=== PATIENT | male | born 1945 | race Caucasian/White ===

== ENCOUNTER 2018-06-03 10:34 | Observation (INO) | payer MEDICARE, OTHER ==
[~2018-06-03] VITALS: Ht 167.6 cm; Wt 87.5 kg
[~2018-06-03 10:34] MED LIST: AMLODIPINE BESYL5 MG PO; ATENOLOL50 MG PO; ATORVASTATIN CA20 MG PO; CLOPIDOGREL75 MG PO; GLIMEPIRIDE2 MG PO; LOSARTAN POTASS50 MG PO; OXYBUTYNIN CHLO15 MG PO; TERAZOSIN HCL5 MG PO
[2018-06-03] MEDS ORDERED: METOPROLOL SUCC50 MG PO (13:47)
[2018-06-03 13:56] LABS: BASOPHILS % 0.3 % (0.0-1.0); EOSINOPHILS # (AUTO) 0.1 (0.0-0.4); EOSINOPHILS % 0.5 % (0.0-6.0); HEMATOCRIT 41.8 % (38.2-49.6); HEMOGLOBIN 13.7 g/dL (14.0-18.0); LYMPHOCYTES # (AUTO) 3.1 (1.0-3.2); LYMPHOCYTES % 32.4 % (18.0-39.1); MEAN CORPUSCULAR HEMOGLOBIN 29.5 pg (28-32); MEAN CORPUSCULAR HGB CONC 32.8 g/dL (31-35); MEAN CORPUSCULAR VOLUME 89.9 fL (81-99); MONOCYTES # (AUTO) 0.9 (0.2-0.8); MONOCYTES % 9.2 % (4.4-11.3); NEUTROPHILS # (AUTO) 5.4 (2.1-6.9); NEUTROPHILS % 57.2 % (38.7-80.0); PLATELET COUNT 150 x10e3/uL (140-360); RED BLOOD COUNT 4.65 x10e6/uL (4.3-5.7); RED CELL DISTRIBUTION WIDTH 13.3 % (11.7-14.4)
[2018-06-03 14:06] LABS: INR 1.08; PROTHROMBIN TIME 13.2 seconds (11.9-14.5)
[2018-06-03 14:07] LABS: PARTIAL THROMBOPLASTIN TIME 28.1 seconds (23.8-35.5)
[2018-06-03 14:15] LABS: ALANINE AMINOTRANSFERASE 14 IU/L (0-55); ALBUMIN 3.7 g/dL (3.5-5.0); ALKALINE PHOSPHATASE 80 IU/L (40-150); ANION GAP 13.6 mmol/L (8-16); BLOOD UREA NITROGEN 13 mg/dL (7-26); BUN/CREATININE RATIO 13 (6-25); CALCIUM 10.2 mg/dL (8.4-10.2); CARBON DIOXIDE 24 mmol/L (22-29); CHLORIDE 104 mmol/L (98-107); CREATININE, SERUM 0.97 mg/dL (0.72-1.25); EST GLOMERULAR FILTRATION RATE > 60 ML/MIN (60-); GLUCOSE 111 mg/dL (74-118); POTASSIUM 4.6 mmol/L (3.5-5.1); SODIUM 137 mmol/L (136-145)
[2018-06-03] MEDS ORDERED: ENOXAPARIN INJ 80 MG/0.8 ML SYR SC STA (14:23)
[2018-06-03] MEDS ORDERED: ENOXAPARIN SODIUM INJ 100 MG/ML SYR SC ONE ×2 (14:45)
[2018-06-03] MEDS ORDERED: HEPARIN SOD (PORCINE) 5,000 UNIT/ML VIAL IV ONE (15:15)
[2018-06-03] MEDS: HEPARIN 25,000U/0.45% NS 250ML 1,300 UNIT in SODIUM CHLORIDE 0.9% 250ML 0 ML IV SCH ×2 (16:19→22:27)
[2018-06-03 16:24] VITALS: BP 137/69
[2018-06-03 16:25] VITALS: BP 137/69
[2018-06-03 16:26] VITALS: BP 137/69
[2018-06-03] MEDS: HYDROCODONE/APAP 5MG-325MG TAB PO PRN (19:04)
[2018-06-03 20:00] VITALS: BP 131/73
[2018-06-04] VITALS (7 sets, daily range): BP systolic 111–148; BP diastolic 70–80
[2018-06-04] MEDS: HYDROCODONE/APAP 5MG-325MG TAB PO PRN ×2 (05:11→17:53)
[2018-06-04] MEDS: HEPARIN 25,000U/0.45% NS 250ML 1,300 UNIT in SODIUM CHLORIDE 0.9% 250ML 0 ML IV SCH ×2 (05:39→11:38)
[2018-06-04] MEDS: ASPIRIN 81 MG ENTERIC COATED PO SCH (07:36)
[2018-06-04] MEDS ORDERED: DEXTROSE 50% SYRINGE 50 ML IV PRN (09:15)
--- NOTE | 2018-06-04 10:09 | History and Physical ---
PCP: Dr. Westley Zimmer ROUGH AND TRUEING MACHINE OPERATOR: Dr. Sudheer Burk CHIEF COMPLAINT: Left thigh pain. HISTORY: Patient is a 72-year-old male with coronary artery disease, previous bypass surgery back in the ; diabetes type 2, on oral medication; and hypertension; came in with a complaint of 1-week duration of left thigh pain. The patient had arterial Doppler done showing that he has superficial femoral artery blockage. The patient is pending for further workup. PAST MEDICAL HISTORY: Coronary artery disease with coronary artery bypass surgery back in the . Hypertension, diabetes type 2, dyslipidemia, peripheral vascular disease, enlarged prostate. PAST SURGICAL HISTORY: Coronary artery bypass graft surgery, 3-vessel. SOCIAL HISTORY: Patient is an ex-smoker, quit many years ago. No alcohol, no recreational drug use. ALLERGIES: TO NO KNOWN ALLERGY. HOME MEDICATIONS: Norvasc, Lipitor, Plavix, Amaryl, losartan, metoprolol succinate, oxybutynin, and terazosin. REVIEW OF SYSTEMS: Left thigh pain improved with heparin drip. PHYSICAL EXAMINATION: VITAL SIGNS: Temperature is 98, blood pressure 111/72, pulse rate is 65, respirations 18. GENERAL: The patient is not in acute distress. He is awake. HEENT: Normocephalic, atraumatic. Sclerae anicteric. NECK: Supple grossly. PULMONARY: Diminished breath sounds. CARDIOVASCULAR: Regular rate and rhythm. ABDOMEN: Soft, nontender, non distention. EXTREMITIES: Left upper thigh area some tenderness, but no swelling, no sign of infection, no thrombophlebitis. NEUROLOGIC: No focal deficit. LABORATORY: WBC is 9.4, hemoglobin 13.7, hematocrit 41.8, and platelets 150,000. Chemistry: Sodium 137, potassium 4.6, chloride 104, bicarb 24, BUN 13, creatinine 0.9, glucose is 111. IMPRESSION: 1. Left upper leg arterial occlusion, superficial femoral per record from emergency room. 2. Multiple chronic baseline problems. PLAN: Angiogram and stent placement are planned. Continue with home medication. Insulin sliding scale coverage. The patient is stable for observation at this time. Job#: [id number]
[2018-06-04] MEDS: INSULIN LISPRO 100 UNIT/1 ML 3ML VIAL SQ SCH ×3 (11:29→21:39)
--- NOTE | 2018-06-04 11:35 | Consultation ---
DATE OF CONSULTATION: June 04, 2018 CARDIOLOGY CONSULTATION REASON FOR CONSULTATION: Left lower extremity rest pain. CHIEF COMPLAINT: "My left thigh was hurting me really badly." HPI: The patient is a 72-year-old male with history of CAD, status post CABG in 1994, who presents with 2 days of pain in his left thigh that has been progressively getting worse and progressed to having pain at rest, so he finally came to the hospital. Patient was suspected to have occlusion of his left common femoral artery, initially seen by Dr. Jones and referred for possible stent placement by interventional radiology. However, we were called once it was discovered that we had seen this patient as an outpatient previously. Currently, the patient says his pain is better after being on heparin drip. Denies any chest pain, shortness of breath or heart failure symptoms. REVIEW OF SYSTEMS: A 10-point review of systems was performed and is as per the HPI, otherwise negative. PAST MEDICAL HISTORY 1. Coronary artery disease. 2. Hypertension. 3. Hyperlipidemia. PAST SURGICAL HISTORY: Coronary bypass surgery in 1994. SOCIAL HISTORY: Patient does not smoke, drink or abuse drugs. FAMILY HISTORY: No family history of early CAD or sudden cardiac . OBJECTIVE VITAL SIGNS: Temperature 98.3, pulse 65, respiratory rate 18, blood pressure 131/70, satting 97% on room air. GENERAL: White male, well developed, well nourished, obese. CARDIOVASCULAR: Regular rate and rhythm. PMI nondisplaced. Normal S1, S2. No murmurs, rubs or gallops. Palpable carotid pulses. Palpable radial pulses. Palpable right femoral pulse. Left femoral pulse is very weak. Left lower extremity pulses are not palpable otherwise; however, the extremity is warm without any mottling or signs of acute ischemia. RESPIRATORY: No respiratory distress. Lungs are clear to auscultation bilaterally. ABDOMEN: Soft, nontender, nondistended. No masses. NEURO AND PSYCH: Alert and oriented to person, place and time. Normal affect. MEDICATIONS: Inpatient and outpatient medications were reviewed. LABORATORY: All laboratory data reviewed and notable for hemoglobin of 13.7, creatinine of 0.97, INR 1.09. PTT is therapeutic. IMAGING DATA: Reviewed. ASSESSMENT AND PLAN 1. Left lower extremity rest pain. 2. Coronary artery disease. 3. Hypertension. 4. Hyperlipidemia. Continue current outpatient cardiovascular medicines including Plavix. Continue heparin drip for left lower extremity rest pain. Dr. Burk to perform left lower extremity angiogram with possible intervention later today. Thank you for this consult. We will continue to follow. Job#: [id number]
[2018-06-04] MEDS: METOPROLOL SUCCINATE 50 MG TAB XL PO SCH (15:42)
[2018-06-04] MEDS ORDERED: NON-FORMULARY MEDICATION (Losartan Potassium 50 MG) PO SCH (21:00)
[2018-06-04] MEDS: ATORVASTATIN 20 MG TAB PO SCH (21:35)
[2018-06-04] MEDS: LOSARTAN POTASSIUM 25 MG TAB PO SCH (21:35)
[2018-06-05] VITALS (17 sets, daily range): BP systolic 105–167; BP diastolic 60–90
[2018-06-05] MEDS: HYDROCODONE/APAP 5MG-325MG TAB PO PRN (04:28)
[2018-06-05] MEDS: HEPARIN 25,000U/0.45% NS 250ML 1,300 UNIT in SODIUM CHLORIDE 0.9% 250ML 0 ML IV SCH (06:28)
[2018-06-05] MEDS: INSULIN LISPRO 100 UNIT/1 ML 3ML VIAL SQ SCH ×4 (07:30→21:00)
[2018-06-05] MEDS: ASPIRIN 81 MG ENTERIC COATED PO SCH (07:33)
[2018-06-05] MEDS: METOPROLOL SUCCINATE 50 MG TAB XL PO SCH ×2 (07:33→17:00)
[2018-06-05] MEDS: OXYBUTYNIN CHLORIDE XL 5 MG TAB PO SCH (07:33)
[2018-06-05] MEDS: TERAZOSIN HCL 5 MG CAP PO SCH (07:33)
[2018-06-05] MEDS: AMLODIPINE BESYLATE 5 MG TAB PO SCH (07:33)
[2018-06-05] MEDS ORDERED: CLOPIDOGREL BISULFATE 75 MG TAB PO SCH (09:00)
--- NOTE | 2018-06-05 14:05 | Progress Note ---
DATE: June 05, 2018 CARDIOLOGY PROGRESS NOTE SUBJECTIVE: Patient denies chest pain or shortness of breath. He is n.p.o. for peripheral angiogram later today. His main complaint is of back pain. OBJECTIVE VITAL SIGNS: Temperature 97.8 degrees, pulse 60, respiratory rate 21, blood pressure 140/70, oxygen saturation 98% on room air. GENERAL: Awake, alert, in no acute distress. LUNGS: Clear to auscultation bilaterally. No wheezes or crackles. CARDIOVASCULAR: Normal rate, regular rhythm. No murmur. Normal S1 and S2. ABDOMEN: Soft. Nontender. EXTREMITIES: No edema. Left lower extremity is warm without palpable distal pulses. CARDIAC MEDICATIONS 1. Heparin drip. 2. Losartan 50 mg p.o. nightly. 3. Atorvastatin 20 mg p.o. nightly. 4. Metoprolol succinate 50 mg p.o. b.i.d. 5. Plavix 75 mg p.o. daily. 6. Amlodipine 5 mg p.o. daily. 7. Aspirin 81 mg p.o. daily. LABS: None today. TELEMETRY: Normal sinus rhythm. IMPRESSION 1. Peripheral arterial disease with critical limb ischemia. 2. Coronary artery disease. 3. Hypertension. 4. Hyperlipidemia. RECOMMENDATIONS: Plan for peripheral angiogram by Dr. Burk later this afternoon. Continue current cardiac medications otherwise. Thank you for this consult. We will continue to follow. Job#: [id number]
[2018-06-05] MEDS ORDERED: HEPARIN SOD (PORCINE) 1000 UNIT/ML 30ML ONE (14:11)
[2018-06-05] MEDS ORDERED: VERAPAMIL HCL 2.5 MG/ML 2 ML VIAL ONE (14:11)
[2018-06-05] MEDS ORDERED: IOPAMIDOL 300MG/ML 100 ML INFUS..BTL IV ONE (14:12)
[2018-06-05] MEDS ORDERED: FENTANYL CITRATE/PF 100MCG/2 ML INJ ONE ×2 (14:12→15:43)
[2018-06-05] MEDS ORDERED: MIDAZOLAM HCL 2 MG/2 ML VIAL ONE ×3 (14:12→15:43)
[2018-06-05] MEDS ORDERED: HEPARIN SOD/SOD CHLORIDE 2,000 ML ONE (14:12)
[2018-06-05] MEDS ORDERED: LIDOCAINE HCL 2% LOCAL 20 ML VIAL ONE (14:12)
[2018-06-05] MEDS ORDERED: NITROGLYCERIN/D5W 200 MCG/ML 250 ML ONE (14:12)
[2018-06-05] MEDS ORDERED: SODIUM CHLORIDE 0.9% 1000ML 2,000 ML ONE (14:25)
[2018-06-05] MEDS ORDERED: ALTEPLASE RECOMBINANT 2 MG/2 ML VIAL ONE (14:47)
[2018-06-05] MEDS ORDERED: SODIUM CHLORIDE 0.9% 50ML 50 ML ONE (14:47)
--- NOTE | 2018-06-05 17:08 | Operative Report ---
DATE OF PROCEDURE: June 05, 2018 INDICATIONS: and claudication of left lower extremity. PROCEDURES PERFORMED 1. Catheter placement and abdominal aortogram. 2. Bilateral lower extremity angiogram. 3. Selective placement of the catheter from the right femoral artery to the left superficial femoral artery. 4. Additional 3rd-order catheter placement from the right femoral artery to the left anterior tibial artery. 5. Primary thrombectomy of the left femoral artery. 6. Stent placement with drug-coated balloon angioplasty of the left femoral artery. COMPLICATIONS: None. RECOMMENDATIONS: Triple therapy for anticoagulation for the next 3 months. Access was obtained in the right femoral artery. Abdominal aortogram demonstrated no disease in the abdominal aorta and iliacs. The left femoral artery was completely occluded with thrombus. The patient received heparin with an ACT of 254. The lesion was crossed using a Glidewire. Power Pulse primary thrombectomy of the left superficial femoral artery was performed using an Angio-Jet device with 4 mg of tPA. The tPA was allowed to dwell for 35 minutes following which primary thrombectomy was performed. There was residual thrombus for which 2 overlapping 6-mm stents were placed post dilated with a 5-mm balloon. Excellent end result. Three-vessel runoff. No complications. The right groin sheath was Job#: [id number]
[2018-06-05] MEDS ORDERED: MORPHINE SULFATE 2 MG/ML SYR ONE (17:20)
[2018-06-05] MEDS ORDERED: ATROPINE SULFATE 0.1 MG/ML 10ML SYR ONE (19:43)
[2018-06-05] MEDS: LOSARTAN POTASSIUM 25 MG TAB PO SCH (21:35)
[2018-06-05] MEDS: ATORVASTATIN 20 MG TAB PO SCH (21:36)
[2018-06-05] MEDS ORDERED: MORPHINE SULFATE INJ 4 MG/ML INJ IV PRN (22:00)
[2018-06-05] MEDS: SODIUM CHLORIDE 0.9% 1000ML 1,000 ML IV SCH (22:10)
[2018-06-06] VITALS: BP 151/80
[2018-06-06 04:00] VITALS: BP 168/88
[2018-06-06 04:57] LABS: BASOPHILS % 0.3 % (0.0-1.0); EOSINOPHILS # (AUTO) 0.1 (0.0-0.4); EOSINOPHILS % 0.5 % (0.0-6.0); HEMATOCRIT 41.9 % (38.2-49.6); HEMOGLOBIN 13.8 g/dL (14.0-18.0); LYMPHOCYTES # (AUTO) 2.5 (1.0-3.2); LYMPHOCYTES % 27.5 % (18.0-39.1); MEAN CORPUSCULAR HEMOGLOBIN 29.5 pg (28-32); MEAN CORPUSCULAR HGB CONC 32.9 g/dL (31-35); MEAN CORPUSCULAR VOLUME 89.5 fL (81-99); MONOCYTES # (AUTO) 0.8 (0.2-0.8); MONOCYTES % 8.9 % (4.4-11.3); NEUTROPHILS # (AUTO) 5.7 (2.1-6.9); NEUTROPHILS % 62.4 % (38.7-80.0); PLATELET COUNT 186 x10e3/uL (140-360); RED BLOOD COUNT 4.68 x10e6/uL (4.3-5.7); RED CELL DISTRIBUTION WIDTH 13.5 % (11.7-14.4)
[2018-06-06 05:26] LABS: ANION GAP 13.1 mmol/L (8-16); BLOOD UREA NITROGEN 14 mg/dL (7-26); BUN/CREATININE RATIO 13 (6-25); CALCIUM 9.8 mg/dL (8.4-10.2); CARBON DIOXIDE 24 mmol/L (22-29); CHLORIDE 103 mmol/L (98-107); CREATININE, SERUM 1.09 mg/dL (0.72-1.25); EST GLOMERULAR FILTRATION RATE > 60 ML/MIN (60-); GLUCOSE 144 mg/dL (74-118); POTASSIUM 4.1 mmol/L (3.5-5.1); SODIUM 136 mmol/L (136-145)
[2018-06-06] MEDS: INSULIN LISPRO 100 UNIT/1 ML 3ML VIAL SQ SCH ×3 (07:30→16:30)
[2018-06-06 08:18] VITALS: BP 155/72
[2018-06-06] MEDS: SODIUM CHLORIDE 0.9% 1000ML 1,000 ML IV SCH (08:34)
[2018-06-06] MEDS: ASPIRIN 81 MG ENTERIC COATED PO SCH (08:34)
[2018-06-06] MEDS: OXYBUTYNIN CHLORIDE XL 5 MG TAB PO SCH (08:35)
[2018-06-06] MEDS: AMLODIPINE BESYLATE 5 MG TAB PO SCH (08:37)
[2018-06-06] MEDS: TERAZOSIN HCL 5 MG CAP PO SCH (08:37)
[2018-06-06] MEDS: METOPROLOL SUCCINATE 50 MG TAB XL PO SCH ×2 (08:38→17:00)
[2018-06-06] MEDS ORDERED: CLOPIDOGREL BISULFATE 75 MG TAB PO SCH (09:00)
[2018-06-06] MEDS ORDERED: RIVAROXABAN 15 MG TABLET PO SCH (09:00)
[2018-06-06] MEDS ORDERED: ASPIRIN 325 MG TAB PO ONE (09:00)
--- NOTE | 2018-06-06 09:54 | Discharge Summary ---
PRIMARY CARE PHYSICIAN: Dr. Westley Zimmer CONSULTANTS: Dr. Sudheer Burk FINAL DIAGNOSES 1. Status post right femoral artery occlusion with status post angiogram procedure on June 05, 2018, done by Dr. Sudheer Burk. Patient had selective placement of a catheter from the right femoral artery to the left superficial femoral artery. 2. Primary thrombectomy of the left femoral artery and stent placement with drug-eluting balloon angioplasty of the left femoral artery. 3. Anticoagulant therapy. SUMMARY: Patient is a 72-year-old male with acute occlusion of the right femoral artery. The patient is now status post stent placement with drug-coated balloon angioplasty of the left femoral artery. Patient is stable. He was already on Plavix and aspirin. Now, he is on Xarelto 15 mg once a day. The patient is stable. He will go home today. Follow up with Dr. Sudheer Burk and Dr. Westley Zimmer for postop care. Patient is stable and discharged home today. Follow up as instructed. Prescription for Xarelto was given. Job#: [id number] MA
[2018-06-06 11:00] VITALS: BP 155/72
[2018-06-06 12:12] VITALS: BP 136/62
[2018-06-06 16:19] VITALS: BP 140/65
[2018-06-06] MEDS ORDERED: XARELTO10 MG PO (17:19)
--- NOTE | 2018-06-06 20:14 | Progress Note ---
DATE: June 06, 2018 CARDIOLOGY PROGRESS NOTE SUBJECTIVE: Patient denies chest pain or shortness of breath. OBJECTIVE VITAL SIGNS: Temperature 97.1 degrees, pulse 73, respiratory rate 16, blood pressure 140/65, oxygen saturation 97% on room air. GENERAL: Awake, alert, in no acute distress. LUNGS: Clear to auscultation bilaterally. No wheezes or crackles. CARDIOVASCULAR: Normal rate, regular rhythm. No murmur. Normal S1, S2. ABDOMEN: Soft, nontender. EXTREMITIES: No edema. Right groin with bruising, but no hematoma or bruit is present. CARDIAC MEDICATIONS 1. Metoprolol succinate 50 mg p.o. b.i.d. 2. 15 mg p.o. daily. 3. Plavix 75 mg p.o. daily. 4. Amlodipine 5 mg p.o. daily. 5. Aspirin 81 mg p.o. daily. 6. Atorvastatin 20 mg p.o. nightly. 7. Losartan 50 mg p.o. nightly. LABS: WBC 9.18, hemoglobin 13.8, hematocrit 41.9, platelets 186,000. Sodium 136, potassium 4.1, chloride 103, CO2 24, BUN 14, creatinine 1.09. TELEMETRY: Normal sinus rhythm. IMPRESSIONS 1. Peripheral arterial disease with critical limb ischemia of the left lower extremity, status post primary thrombectomy of the left femoral artery, as well as stent placement with drug-coated balloon angioplasty in the left femoral artery. 2. Coronary artery disease. 3. Hypertension. 4. Hyperlipidemia. RECOMMENDATIONS: Patient will need to be on triple therapy with aspirin, Plavix, and Xarelto 15 mg for 3 months. Monitor for signs and symptoms of bleeding. Continue current cardiac medications. Otherwise, please have the patient follow up with us in the office in 2 weeks. Thank you for this consult. We will continue to follow. Job#: [id number] CQ
== END 2018-06-06 17:57 | disposition home or self-care (01) ==
LOC: ER 10:34 → ERHOLD 14:52 → IMCU 15:28
PROVIDERS: ADMIT Internal Medicine; ATTEND Internal Medicine
DX: I70.212 Atherosclerosis of native arteries of extremities with intermittent claudication, left leg (principal); I74.3 Embolism and thrombosis of arteries of the lower extremities; I25.810 Atherosclerosis of coronary artery bypass graft(s) without angina pectoris; I77.1 Stricture of artery; E78.5 Hyperlipidemia, unspecified; I10 Essential (primary) hypertension; E11.9 Type 2 diabetes mellitus without complications; N40.0 Benign prostatic hyperplasia without lower urinary tract symptoms; Z79.84 Long term (current) use of oral hypoglycemic drugs; Z79.02 Long term (current) use of antithrombotics/antiplatelets; Z95.1 Presence of aortocoronary bypass graft; Z87.891 Personal history of nicotine dependence
CPT/HCPCS: 36415 ×3; 37184; 37226; 75625; 75716; 80048; 80053; 82948 ×4; 85025 ×2; 85610; 85730 ×4; 93926; 93971; 99284; C1725; C1769 ×2; C1876 ×2; C1887; C2623; G0378 ×4; J1644 ×5; J1650; J2001; J2250; J2270 ×2; J2997; J7030 ×2; J7050 ×3; Q9967

== ENCOUNTER → 2018-08-15 | Day surgery (SDC) | payer OTHER ==
[2018-08-14 11:58] LABS: BASOPHILS # (AUTO) 0.1 (0.0-0.1); BASOPHILS % 0.6 % (0.0-1.0); EOSINOPHILS # (AUTO) 0.1 (0.0-0.4); EOSINOPHILS % 1.6 % (0.0-6.0); HEMATOCRIT 43.5 % (38.2-49.6); LYMPHOCYTES # (AUTO) 2.7 (1.0-3.2); LYMPHOCYTES % 31.3 % (18.0-39.1); MEAN CORPUSCULAR HEMOGLOBIN 29.2 pg (28-32); MEAN CORPUSCULAR HGB CONC 32.2 g/dL (31-35); MEAN CORPUSCULAR VOLUME 90.6 fL (81-99); MONOCYTES # (AUTO) 0.8 (0.2-0.8); MONOCYTES % 9.3 % (4.4-11.3); NEUTROPHILS # (AUTO) 4.8 (2.1-6.9); PLATELET COUNT 164 x10e3/uL (140-360); RED CELL DISTRIBUTION WIDTH 13.1 % (11.7-14.4)
[2018-08-14 12:09] LABS: INR 0.91; PROTHROMBIN TIME 13.1 seconds (11.9-14.5)
[2018-08-14 12:18] LABS: ALANINE AMINOTRANSFERASE 17 IU/L (0-55); ALBUMIN 3.9 g/dL (3.5-5.0); ALBUMIN/GLOBULIN RATIO 1.1 (0.8-2.0); ALKALINE PHOSPHATASE 87 IU/L (40-150); ANION GAP 12.6 mmol/L (8-16); BLOOD UREA NITROGEN 15 mg/dL (7-26); BUN/CREATININE RATIO 13 (6-25); CALCIUM 10.5 mg/dL (8.4-10.2); CARBON DIOXIDE 26 mmol/L (22-29); CHLORIDE 105 mmol/L (98-107); CREATININE, SERUM 1.17 mg/dL (0.72-1.25); EST GLOMERULAR FILTRATION RATE > 60 ML/MIN (60-); GLUCOSE 168 mg/dL (74-118); POTASSIUM 4.6 mmol/L (3.5-5.1); SODIUM 139 mmol/L (136-145)
[~2018-08-15] VITALS: Ht 167.6 cm; Wt 88.5 kg
[~2018-08-15] MED LIST changes: +ALPRAZOLAM 0.5 MG TAB ONE; +ASPIR 8181 MG PO; +DIPHENHYDRAMINE HCL 25 MG CAP ONE; +FENTANYL CITRATE/PF 100MCG/2 ML INJ ONE; +HEPARIN SOD/SOD CHLORIDE 2,000 ML ONE; +IOPAMIDOL 370 MG/ML 200 ML INFUS..BTL INJ ONE; +LIDOCAINE HCL 2% LOCAL 20 ML VIAL ONE; +METOPROLOL SUCC50 MG PO; +MIDAZOLAM HCL 2 MG/2 ML VIAL ONE; +SODIUM CHLORIDE 0.9% 1000ML 1,000 ML ONE; +XARELTO10 MG PO
[2018-08-15 18:00] VITALS: BP 141/73
--- NOTE | 2018-08-15 18:49 | Operative Report ---
DATE OF PROCEDURE: August 15, 2018 INDICATIONS: Coronary artery disease. Abnormal stress test with angina. PROCEDURES PERFORMED: 1. Left heart catheterization, selective coronary angiography, left ventriculography. 2. Selective cannulation of 1 arterial and 2 venous bypass conduits. 3. Deployment of right groin Mynx closure device. BLOOD LOSS: 10 mL. RECOMMENDATIONS: Medical therapy including external counter pulsations. Access obtained in the right great femoral artery. A 6-Burund[place] sheath was placed. Diagnostic coronary angiogram revealed patent left main, left anterior descending and proximal 80% stenosis. Distal vessel was still visualized and was patent, had 70% stenosis. Circumflex was occluded. Right coronary artery is occluded. Saphenous vein bypass graft to right coronary artery was occluded. However, faint collaterals from the left coronary system filled the distal right posterior descending artery. Left anterior mammary artery bypass graft to left anterior descending artery was widely patent. Saphenous vein bypass graft to obtuse marginal artery was widely patent. LV ejection fraction 50% with inferior akinesis. LV end-diastolic pressure of 10. No gradient across the aortic valve on pullback. The sheath was removed. Right groin Mynx closure device was applied. Patient was discharged home same day. Job#: [id number]
[2018-08-15 19:30] VITALS: BP 161/77
== END | disposition home or self-care (01) ==
LOC: CATH LAB 12:48
PROVIDERS: ATTEND Internal Medicine Interventional Cardiology
DX: I25.799 Atherosclerosis of other coronary artery bypass graft(s) with unspecified angina pectoris (principal); I82.90 Acute embolism and thrombosis of unspecified vein; R94.39 Abnormal result of other cardiovascular function study; I25.2 Old myocardial infarction; I10 Essential (primary) hypertension; I73.9 Peripheral vascular disease, unspecified; E11.9 Type 2 diabetes mellitus without complications; Z01.812 Encounter for preprocedural laboratory examination; Z79.02 Long term (current) use of antithrombotics/antiplatelets; Z79.84 Long term (current) use of oral hypoglycemic drugs; Z79.82 Long term (current) use of aspirin; Z68.33 Body mass index [BMI] 33.0-33.9, adult; Z95.1 Presence of aortocoronary bypass graft; Z87.891 Personal history of nicotine dependence
CPT/HCPCS: 36415 ×2; 80053; 82948; 85025; 85610; 93458; C1769; J2001; J2250; J7030; Q9967; 93459

== ENCOUNTER 2020-08-12 18:56 | Emergency (ER) | payer OTHER ==
[~2020-08-12] VITALS: Ht 167.6 cm; Wt 88.5 kg
[~2020-08-12 18:56] MED LIST changes: -ALPRAZOLAM 0.5 MG TAB ONE; -DIPHENHYDRAMINE HCL 25 MG CAP ONE; -FENTANYL CITRATE/PF 100MCG/2 ML INJ ONE; -HEPARIN SOD/SOD CHLORIDE 2,000 ML ONE; -IOPAMIDOL 370 MG/ML 200 ML INFUS..BTL INJ ONE; -LIDOCAINE HCL 2% LOCAL 20 ML VIAL ONE; -MIDAZOLAM HCL 2 MG/2 ML VIAL ONE; -SODIUM CHLORIDE 0.9% 1000ML 1,000 ML ONE
[2020-08-12] MEDS ORDERED: AZITHROMYCIN 500MG/NS 250 ML 250 ML IV ONE (19:15)
[2020-08-12] MEDS ORDERED: CEFTRIAXONE SOD 1 GM/NS 50 ML 50 ML IV ONE (19:15)
[2020-08-12] MEDS ORDERED: ACETAMINOPHEN 325 MG TAB PO PRN (19:15)
[2020-08-12] MEDS ORDERED: DEXAMETHASONE SOD PHOS 10 MG/1 ML VIAL IV ONE (19:15)
--- NOTE | 2020-08-12 19:43 | Emergency Department Note ---
History of Present Illnes History of Present Illness Chief Complaint: Respiratory History of Present Illness This is a 74 year old male PRESENTS TO ED WITH INTERMITTENT FEVER, SOB, COUGH X1 WEEK; 20 GAUGE IV CATH PLACED TO PTS RIGHT AC, BLOOD OBTAINED FOR LAB ANALYSIS, CULTURES, LACTIC, COVID SWAB OBTAINED; O2 SAT RA 82%, O2 APPLIED VIA NC AT 6 LPM WITH RESULTING SPO2 93%; . Historian: Patient Arrival Mode: Car Ship Captain Required: No Onset (how long ago): week(s) (1) Location: CHEST Quality: COUGH, SOB, FEVEER Radiation: Reports non-radiation Severity: moderate Onset quality: gradual Duration (how long): week(s) (1) Timing of current episode: constant Progression: worsening Chronicity: new Context: Reports recent illness ( ABOVE) Relieving factors: none Exacerbating factors: movement Associated symptoms: Reports cough, Reports shortness of breath Treatments prior to arrival: none Past Medical/Family History Physician Review I have reviewed the patient's past medical and family history. Any updates have been documented here. Past Medical History Recent Fever: Yes Clinical Suspicion of Infectio: Yes New/Unexplained Change in Ment: No Past Medical History: Diabetes, CAD, Cancer, Chronic Kidney Disease Other Medical History: SKIN CANCER Past Surgical History: CABG Other Surgery: SKIN INFECTION REMOVED LEG SURGERY WHEN CABG DONE Social History Smoking Cessation: Never Smoker Alcohol Use: None Any Illegal Drug Use: No Family History Family history of heart diseas: No Other Last Tetanus: UNKNOWN Review of Systems Review of Systems Constitutional: Reports as per HPI EENTM: Reports no symptoms Cardiovascular: Reports no symptoms Respiratory: Reports as per HPI Gastrointestinal: Reports no symptoms Genitourinary: Reports no symptoms Musculoskeletal: Reports no symptoms Integumentary: Reports no symptoms Neurological: Reports no symptoms Psychological: Reports no symptoms Endocrine: Reports no symptoms Hematological/Lymphatic: Reports no symptoms Physical Exam Related Data Allergies: Coded Allergies: No Known Allergies (Unverified , 06/03/18) Triage Vital Signs Vital Signs Date Time Temp Pulse Resp B/P (MAP) Pulse Ox O2 Delivery O2 Flow Rate FiO2 08/12/20 19:07 99.1 97 25 157/64 82 Room Air 08/12/20 19:34 6.0 Vital signs reviewed: Yes Physical Exam CONSTITUTIONAL Constitutional: Present well-developed, Present well-nourished, Present dist ressed (MILD) HENT HENT: Present normocephalic, Present atraumatic, Present oropharynx clear /moist, Present nose normal HENT L/R: Present left ext ear normal, Present right ext ear normal EYES Eyes: Reports PERRL, Reports conjunctivae normal NECK Neck: Present ROM normal PULMONARY Pulmonary: Present effort normal, Present respiratory distress (MILD), Present other (DECREASED BREATH SOUNDS BASES BILATERAL) CARDIOVASCULAR Cardiovascular: Present regular rhythm, Present heart sounds normal, Present capillary refill normal, Present tachycardia GASTROINTESTINAL Abdominal: Present soft, Present nontender, Present bowel sounds normal GENITOURINARY Genitourinary: Present exam deferred SKIN Skin: Present warm, Present dry MUSCULOSKELETAL Musculoskeletal: Present ROM normal NEUROLOGICAL Neurological: Present alert, Present oriented x 3, Present no gross motor or sensory deficits PSYCHOLOGICAL Psychological: Present mood/affect normal, Present judgement normal Procedures 12 Lead ECG Interpretation ECG Interpretation : ECG: ECG 1 Ship Captain: Interpreted by ED physician Date: Aug 12, 2020 Time: 19:27 Rhythm: sinus tachycardia Ectopy: frequent PVC's Rate: tachycardia BPM: 115 QRS axis: normal ST segments normal: No (NON SPECIFIC CHANGES) T waves normal: No (NONSPECIFIC CHANGES) Q waves: II, III, aVF Clinical Impression: abnormal ECG Critical Care Time Total Critical Care Time (min): 31 Critcal care necessary due to: cardiac failure, respiratory failure Critcal care time spent by me: develop tx plan w patient/surrogate, interpret cardiac output measures, evaluation patient response to tx, examination of patient, obtaining hx from patient/surrogate, order/review laboratory studies, order/review radiographic studies, pulse oximetry, re-evaluation of patient condition Assessment & Plan Medical Decision Making MDM PT WITH COVID 19 SYMPTOMS, OXYGEN SAT ON ROOM AIR 82%, 93% on 100% nonrebreather cbc,cmp,cardiac enzymes, ekg, bnp, cxr, ct chest, covid 19, lactic acid ordered to eval for pneumonia, covid 19, pulmonary edema, leukocytosis, electrolyte abnormality rocephin 1 gram iv ordered zithromax 500 mg iv ordered dexamethasone 6 mg iv ordered PT WITH NON STEMI, CHF, POSSIBLE COVID 19, NEEDS IMCU BED, NO BEDS AVAILABLE AT THIS FACILITY, PT NEEDS TRANSFER TO ANOTHER HOSPITAL LACTIC ACIDOSIS SECONDARY TO HYPOXIA AND PULMONARY EDEMA I SPOKE WITH DR OLIVEIRA AT [facility] AND SHE ACCEPTS PT FOR TRANSFER Reassessment Reassessment time: 20:30 Reassessment PT WENT INTO AFIB WITH RVR HEART RATE 110 TO 140 CARDIZEM 10 MG IV ORDERED AFTER CARDIZEM HEART RATE 90'S Assessment & Plan Final Impression: (1) Non-STEMI (non-ST elevated myocardial infarction) (2) CHF (congestive heart failure) (3) Hypoxia (4) Pneumonia (5) Suspected COVID-19 virus infection Depart Disposition: TRANS TO OTHER [facility] Last Vital Signs Date Time Temp Pulse Resp B/P (MAP) Pulse Ox O2 Delivery O2 Flow Rate FiO2 08/12/20 19:34 105 30 163/77 93 Nasal Cannula 6.0 08/12/20 19:07 99.1 Home Meds Reported Medications Aspirin (ASPIR 81) 81 Mg Tablet.dr, 81 MG PO DAILY 08/14/18 Rivaroxaban (XARELTO) 10 Mg Tablet, 15 MG PO DAILY 06/06/18 Metoprolol Succinate (METOPROLOL SUCCINATE) 50 Mg Tab.er.24h, 50 MG PO BID, MG 06/03/18 Losartan Potassium (LOSARTAN POTASSIUM) 50 Mg Tablet, 50 MG PO HS 10/03/16 Terazosin Hcl (TERAZOSIN HCL) 5 Mg Capsule, 5 MG PO DAILY, #30 CAP 10/03/16 Oxybutynin Chloride (OXYBUTYNIN CHLORIDE ER) 15 Mg Tab.er.24, 15 MG PO DAILY 10/03/16 Clopidogrel Bisulfate (CLOPIDOGREL) 75 Mg Tablet, 75 MG PO DAILY, #30 TAB 10/03/16 Amlodipine Besylate (AMLODIPINE BESYLATE) 5 Mg Tablet, 5 MG PO DAILY, #30 TAB 10/03/16 Glimepiride (GLIMEPIRIDE) 2 Mg Tablet, 2 MG PO BID, TAB 10/03/16 Atorvastatin Calcium (ATORVASTATIN CALCIUM) 20 Mg Tablet, 20 MG PO HS, #30 TAB 10/03/16 Medications in the ED Ceftriaxone Sodium 50 ml @ 100 mls/hr ONCE ONCE IV ; Start 08/12/20 at 19:15; Stop 08/12/20 at 19:44 Azithromycin 250 ml @ 200 mls/hr NOW ONCE IV ; Start 08/12/20 at 19:15; Stop 08/12/20 at 20:29 Dexamethasone Sodium Phosphate 6 mg ONCE ONCE IV ; Start 08/12/20 at 19:15; Stop 08/12/20 at 19:20; Status DC Acetaminophen 650 mg Q4H PRN PO Mild Pain (1-3) or Fever>100.8; Start 08/12/20 at 19:15; Stop 09/11/20 at 19:14 BASSEM BROWNLEE MD Aug 12, 2020 19:43
[2020-08-12 19:50] LABS: BASOPHILS % 0.2 % (0.0-1.0); EOSINOPHILS % 0.1 % (0.0-6.0); HEMATOCRIT 37.4 % (38.2-49.6); HEMOGLOBIN 11.8 g/dL (14.0-18.0); LYMPHOCYTES % 13.7 % (18.0-39.1); MEAN CORPUSCULAR HEMOGLOBIN 27.5 pg (28-32); MEAN CORPUSCULAR HGB CONC 31.6 g/dL (31-35); MEAN CORPUSCULAR VOLUME 87.2 fL (81-99); MONOCYTES % 6.9 % (4.4-11.3); NEUTROPHILS # (AUTO) 11.3 (2.1-6.9); NEUTROPHILS % 78.5 % (38.7-80.0); PLATELET COUNT 218 x10e3/uL (140-360); RED BLOOD COUNT 4.29 x10e6/uL (4.3-5.7); RED CELL DISTRIBUTION WIDTH 13.7 % (11.7-14.4)
[2020-08-12 20:04] LABS: ALBUMIN 2.8 g/dL (3.5-5.0); ALBUMIN/GLOBULIN RATIO 0.5 (0.8-2.0); ANION GAP 18.9 mmol/L (8-16); CREATININE, SERUM 1.36 mg/dL (0.72-1.25); POTASSIUM 3.9 mmol/L (3.5-5.1)
[2020-08-12 20:11] LABS: CREATINE KINASE MB 23.8 ng/mL (0-5.0)
[2020-08-12 20:24] LABS: B-TYPE NATRIURETIC PEPTIDE2 659.3 pg/mL (0-100)
[2020-08-12] MEDS ORDERED: DILTIAZEM HCL 5 MG/ML 5 ML VIAL IV STA (20:28)
[2020-08-12] MEDS ORDERED: ASPIRIN 81 MG CHEW TAB PO ONE (20:30)
[2020-08-12] MEDS ORDERED: DILTIAZEM HCL VIAL 5 ML ONE (20:37)
[2020-08-12] MEDS ORDERED: FUROSEMIDE INJ 10 MG/ML 4 ML VIAL IV ONE (21:15)
--- NOTE | 2020-08-12 21:24 | Diagnostic Imaging Report ---
EXAM: CT Chest WITHOUT contrast INDICATION: SOB COMPARISON: None TECHNIQUE: Chest was scanned utilizing a multidetector helical scanner from the lung apex through the level of the adrenal glands without administration of IV contrast. Absence of intravenous contrast decreases sensitivity for detection of lymphadenopathy and vascular pathology. Coronal and sagittal reformations were obtained. Routine protocol was performed. IV CONTRAST: None COMPLICATIONS: None FINDINGS: LUNGS AND AIRWAYS: Severe diffuse groundglass opacities throughout the right lung with septal thickening and patchy peripheral consolidative opacities. Scattered mild peripheral groundglass opacities throughout the left lung. PLEURA: Trace right pleural effusion HEART AND MEDIASTINUM: Enlarged mediastinal lymph nodes includin.5 cm right paratracheal lymph node. 2.0 cm subcarinal lymph node. 1.6 cm right hilar lymph node. Mild cardiomegaly. No pericardial effusion. UPPER ABDOMEN: Scattered hepatic cysts. BONES: There are degenerative changes in the thoracic spine. Sternotomy wires. SOFT TISSUES: Unremarkable. IMPRESSION: 1. Asymmetric severe diffuse groundglass opacification of the right lung with interlobular septal thickening and peripheral consolidative opacities with mild disease in the left lung. Findings are most concerning for an infectious/inflammatory process including viral and atypical pneumonia. Broad differential also includes ARDS, alveolar hemorrhage, alveolar proteinosis, and asymmetric edema. Recommend follow-up CT in 6-8 weeks to document resolution. 2. Enlarged mediastinal lymph nodes may be reactive, but are somewhat larger than expected raising the possibility of metastatic disease. These can be reassessed on recommended follow-up CT. Signed by: Kali Moralez MD on 08/12/2020 9:21 PM
--- NOTE | 2020-08-12 22:10 | NUR ---
transfer initiated to [facility]
--- NOTE | 2020-08-12 22:26 | NUR ---
ABILIO CAZARES, PT'S DAUGHTER. CELL PHONE # [phone]. HOME PHONE # [phone].
--- NOTE | 2020-08-12 23:57 | NUR ---
REPORT GIVEN TO TAVARES DOWNING AT [facility].
[2020-08-12 23:58] VITALS: BP 123/74
--- OUTSIDE RECORDS SUMMARY | 2020-08-18 18:15 | XMS REPORT | Continuity of Care Document ---
Author Author [facility] [place] [place] t Organization [facility] Address [address] [place] [address] Phone Unavailable Care Team Providers Care Sorting And Folding Supervisor Name Role Phone JULIAN YANEZ MD PCP Soraya BROWNLEE Attphydivya Unavailable Payers Payer Name Policy Type Policy Number Effective Date Expiration Date Divya Sandoval [id number] 2018 00:00:00 [facility] Problems Condition Name Condition Details Condition Category Status Onset Date Resolution Date Last Treatment Date Treating Clinician Comments Source 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 Ordering Clinician Indication Dosage Frequency Signature (SIG) Comments Components Source Amlodipine Besylate 5 Mg Tablet Amlodipine Besylate 5 Mg Tablet Yes 5 Daily [facility] Atorvastatin Calcium 20 Mg Tablet Atorvastatin Calcium 20 Mg Tablet Yes 20 Bedtime [facility] Clopidogrel Bisulfate (Clopidogrel) 75 Mg Tablet Clopi dogrel Bisulfate (Clopidogrel) 75 Mg Tablet Yes 75 Daily [facility] Glimepiride 2 Mg Tablet Glimepiride 2 Mg Tablet Yes 2 Twice A Day [facility] Losartan Potassium 50 Mg Tablet Losartan Potassium 50 Mg Tablet Yes 50 Bedtime [facility] Metoprolol Succinate 50 Mg Tab.er.24h Metoprolol Succinate 50 Mg Ta b.er.24h Yes 50 Twice A Day [facility] Oxybutynin Chloride (Oxybutynin Chloride Er) 15 Mg Tab .er.24 Oxybutynin Chloride (Oxybutynin Chloride Er) 15 Mg Tab.er.24 Yes 15 Daily [facility] Rivaroxaban (Xarelto) 10 Mg Tablet Rivaroxaban (Xarelto) 10 Mg Tablet Yes 15 Daily [facility] Terazosin Hcl 5 Mg Capsule Terazosin Hcl 5 Mg Capsule Yes 5 Daily [facility] Atenolol 50 Mg Tablet, 50 Mg Oral Atenolol 50 Mg Tablet, 50 Mg O ral 2018-06-03 00:00:00 No 50 Daily [facility] Procedures This patient has no known procedures. Encounters Start Date/Time End Date/Time Encounter Type Admission Type [facility] Care Department Encounter ID Source 2018-06-03 14:52:00 2018-06-06 17:57:00 Discharged Inpatient (obs) [facility] [id number] [facility] Results Test Description Test Time Test Comments Results Result Comments Source GLUBED 2020-08-18 12:48:00 Test Item GLUBED (test code = GLUBED) 247 mg/dL 74-106 H Performed by certified fabric machine operator at [facility] - XR CHEST 1 [id number] 08:43:00 [facility] ([facility])Name: IRAJ CAZARES : 1945 S ex: M FAX: Manolo Garner MD [phone] [place]: St: ADM FAX: David Ansari [phone] Name: IRAJ CAZARES [facility] Ericka : 1945 Age/S: 74/M [address] [facility] Unit #: [id number] Loc: [place] [address] Phys: Manolo Yadav MD Acct: [id number] Dis Date: Status: ADM IN PHONE #: [phone] Exam Date: 08/18/2020 0737 FAX #: [phone] Reason: pneumonia EXAMS: CPT CODE: [id number] XR CHEST 1 V 70806 HISTORY: Pneumonia. COMPARISON: August 15, 2020. L ocation: [facility]. Patchy bilateral alveolar infiltrates, greater on th e right appear unchanged. Loss of lung volume on the right. Dependent lee ges. Cardiomegaly. IMPRESSION: Unchanged bilateral alveolar infiltrates, greater on the right. at 0843 Repo rted and signed by: Jermaine Payton M.D. CC: Otilio Yadav MD; David Rae Technologist: Carissa Butler(Jessie) Trnscrd Date/Time/By: 08/18/2020 (0843) : By: [email or web address] [email or web address] Orig Print D/T: S: 08/18/2020 (1797) PAGE 1 Signed Report C REACTIVE [id number] 07:30:00* Test Item Value Reference Range Interpretation Comments C REACTIVE PROTEIN (test code = CRP) 12.60 mg/dL 0-0.3 H [id number] 07:13:00* Test Item Value Reference Range Interpretation Comments FERRITIN (test code = EDD) 750 ng/mL 8-388 H PROTHROMBIN [id number] 07:05:00* Test Item Value Reference Range Interpretation Comments PROTHROMBIN TIME PATIENT (test code = PTP) 14.5 seconds 9.0-14.0 H INTERNATIONAL NORMAL RATIO (test code = INR) 1.3 0.8-1.2 H The therapeutic range for oral anticoagulant therapy formost indications is an international normalized ratio (INR)of between 2.0 and 3.0. The recommended therapeutic INRrange for various clinical situations is listed below: Clinical Situation INR range Pulmonary e mbolism treatment (2.0-3.0)Venous thrombosis treatmentVenous thrombosis prophylaxis (high risk surgery)Prevention of systemic embolism from: Acute myocardial infarction Valvular heart disease Atrial fibrillation Mechanical prosthetic heart valves (2.5-3.5) IS PATIENT ON ANTICOAGULANTS? YLIST ANTICOAGULANTS HEPARINFIBRINOGEN 2020-08-18 07:05:00* Test Item Value Reference Range Interpretation Comments FIBRINOGEN (test code = FIB) 870 mg/dL 200-400 H IS PATIENT ON ANTICOAGULANTS? YLIST ANTICOAGULANTS [id number] 05:53:00* Test Item Value Reference Range Interpretation Comments GLUBED (test code = GLUBED) 177 mg/dL 74-106 H Performed by certified fabric machine operator at [facility] [id number] 21:32:00* Test Item Value Reference Range Interpretation Comments GLUBED (test code = GLUBED) 261 mg/dL 74-106 H Performed by certified fabric machine operator at [facility] [id number] 16:38:00* Test Item Value Reference Range Interpretation Comments GLUBED (test code = GLUBED) 203 mg/dL 74-106 H Performed by certified fabric machine operator at [facility] [id number] 15:10:00* Test Item Value Reference Range Interpretation Comments GLUBED (test code = GLUBED) 230 mg/dL 74-106 H Performed by certified fabric machine operator at [facility] BASIC METABOLIC [id number] 06:10:00* Test Item Value Reference Range Interpretation Comments SODIUM (test code = NA) 141 mmol/L 136-145 N POTASSIUM (test code = K) 4.6 mmol/L 3.5-5.1 N CHLORIDE (test code = CL) 108.0 mmol/L 98-107 H CARBON DIOXIDE (test code = CO2) 28.0 mmol/L 21-32 N ANION GAP (test code = GAP) 9.6 10-20 L GLUCOSE (test code = GLU) 162 mg/dL 74-106 H BLOOD UREA NITROGEN (test code = BUN) 31 mg/dL 7-18 H GLOMERULAR FILTRATION RATE (test code = GFR) > 60 mL/min >=60 Estimated GFR by using Modified MDRD formula.Chronic kidney disease is defined as either kidney damageor GFR <60 mL/min/1.73 m2 for >3 months. CREATININE (test code = CREAT) 0.90 mg/dL 0.7-1.3 N BUN/CREATININE RATIO (test code = BUN/CREA) 34.4 10-20 H CALCIUM (test code = CA) 9.4 mg/dL 8.5-10.1 N CBC W/AUTO [id number] 05:31:00* Test Item Value Reference Range Interpretation Comments WHITE BLOOD CELL (test code = WBC) 16.1 K/mm3 4.5-12.5 H RED BLOOD CELL (test code = RBC) 4.74 mill/mm3 4.0-5.8 N HEMOGLOBIN (test code = HGB) 13.1 gram/dL 13.0-17.5 N HEMATOCRIT (test code = HCT) 43.0 % 42.0-52.0 N MEAN CELL VOLUME (test code = MCV) 90.7 fL 80-98 N MEAN CELL HGB (test code = MCH) 27.6 picogram 27.0-33.0 N MEAN CELL HGB CONCETRATION (test code = MCHC) 30.5 gram/dL 33.0-36. 0 L RED CELL DISTRIBUTION WIDTH (test code = RDW) 14.2 % 11.6-16. 2 N RED CELL DISTRIBUTION WIDTH SD (test code = RDW-SD) 47.7 fL 37 .0-51.0 N PLATELET COUNT (test code = PLT) 324 K/mm3 150-450 N MEAN PLATELET VOLUME (test code = MPV) 11.9 fL 6.7-11.0 H NEUTROPHIL % (test code = NT%) 70.5 % 39.0-69.0 H IMMATURE GRANULOCYTE % (test code = IG%) 0.9 % 0.0-5.0 N LYMPHOCYTE % (test code = LY%) 21.2 % 25.0-55.0 L MONOCYTE % (test code = MO%) 6.5 % 0.0-10.0 N EOSINOPHIL % (test code = EO%) 0.8 % 0.0-5.0 N BASOPHIL % (test code = BA%) 0.1 % 0.0-1.0 N NUCLEATED RBC % (test code = NRBC%) 0.0 % 0-0 N NEUTROPHIL # (test code = NT#) 11.33 K/mm3 1.8-7.7 H IMMATURE GRANULOCYTE # (test code = IG#) 0.15 x10 3/uL 0-0.03 H LYMPHOCYTE # (test code = LY#) 3.40 K/mm3 1.0-5.0 N MONOCYTE # (test code = MO#) 1.04 K/mm3 0-0.8 H EOSINOPHIL # (test code = EO#) 0.13 K/mm3 0.0-0.5 N BASOPHIL # (test code = BA#) 0.02 K/mm3 0.0-0.2 N NUCLEATED RBC # (test code = NRBC#) 0.00 K/mm3 0.0-0.1 N MANUAL DIFF REQUIRED (test code = MDIFF) NO [id number] 05:01:00* Test Item Value Reference Range Interpretation Comments GLUBED (test code = GLUBED) 150 mg/dL 74-106 H Performed by certified fabric machine operator at [facility] [id number] 20:12:00* Test Item Value Reference Range Interpretation Comments GLUBED (test code = GLUBED) 130 mg/dL 74-106 H Performed by certified fabric machine operator at [facility] [id number] 15:37:00* Test Item Value Reference Range Interpretation Comments GLUBED (test code = GLUBED) 176 mg/dL 74-106 H Performed by certified fabric machine operator at [facility] Coronavirus 2019 [id number] 15:07:00* Test Item Value Reference Range Interpretation Comments Coronavirus 2019 Confirmation (test code = [id number]) Negative Negative Coronavirus 2019 [id number] 15:07:00* Test Item Value Reference Range Interpretation Comments Coronavirus 2019 Confirmation (test code = [id number]) Negative Negative [id number] 11:49:00* Test Item Value Reference Range Interpretation Comments GLUBED (test code = GLUBED) 242 mg/dL 74-106 H Performed by certified fabric machine operator at [facility] THROMBOPLASTIN TIME [id number] 09:56:00* Test Item Value Reference Range Interpretation Comments THROMBOPLASTIN TIME PARTIAL (test code = PTT) 148.0 seconds 23.0-37 .0 HH Results called to [id number] by [email or web address] 08/16/20 0956Critical results verified and read back by Nurse? Y IS PATIENT ON ANTICOAGULANTS? YLIST ANTICOAGULANTS [id number] 06:11:00* Test Item Value Reference Range Interpretation Comments GLUBED (test code = GLUBED) 173 mg/dL 74-106 H Performed by certified fabric machine operator at [facility] THROMBOPLASTIN TIME [id number] 01:32:00* Test Item Value Reference Range Interpretation Comments THROMBOPLASTIN TIME PARTIAL (test code = PTT) 28.0 seconds 23.0-37. 0 N IS PATIENT ON ANTICOAGULANTS? YLIST ANTICOAGULANTS [id number] 21:05:00* Test Item Value Reference Range Interpretation Comments GLUBED (test code = GLUBED) 245 mg/dL 74-106 H Performed by certified fabric machine operator at [facility] THROMBOPLASTIN TIME [id number] 18:43:00* Test Item Value Reference Range Interpretation Comments THROMBOPLASTIN TIME PARTIAL (test code = PTT) 33.4 seconds 23.0-37. 0 N IS PATIENT ON ANTICOAGULANTS? YLIST ANTICOAGULANTS [id number] 16:35:00* Test Item Value Reference Range Interpretation Comments GLUBED (test code = GLUBED) 119 mg/dL 74-106 H Performed by certified fabric machine operator at [facility] [id number] 11:43:00* Test Item Value Reference Range Interpretation Comments GLUBED (test code = GLUBED) 210 mg/dL 74-106 H Performed by certified fabric machine operator at [facility] [id number] 10:23:00* Test Item Value Reference Range Interpretation Comments GLUBED (test code = GLUBED) 158 mg/dL 74-106 H Performed by certified fabric machine operator at [facility] B-TYPE NATRIURETIC [id number] 08:52:00* Test Item Value Reference Range Interpretation Comments B-TYPE NATRIURETIC PEPTIDE (test code = BNP) 306.13 pgram/mL 0-100 H C REACTIVE [id number] 08:41:00* Test Item Value Reference Range Interpretation Comments C REACTIVE PROTEIN (test code = CRP) 11.70 mg/dL 0-0.3 H COMPREHENSIVE METABOLIC [id number] 08:31:00* Test Item Value Reference Range Interpretation Comments SODIUM (test code = NA) 144 mmol/L 136-145 N POTASSIUM (test code = K) 4.4 mmol/L 3.5-5.1 N CHLORIDE (test code = CL) 109.0 mmol/L 98-107 H CARBON DIOXIDE (test code = CO2) 29.0 mmol/L 21-32 N ANION GAP (test code = GAP) 10.4 10-20 N GLUCOSE (test code = GLU) 183 mg/dL 74-106 H BLOOD UREA NITROGEN (test code = BUN) 34 mg/dL 7-18 H GLOMERULAR FILTRATION RATE (test code = GFR) > 60 mL/min >=60 Estimated GFR by using Modified MDRD formula.Chronic kidney disease is defined as either kidney damageor GFR <60 mL/min/1.73 m2 for >3 months. CREATININE (test code = CREAT) 1.00 mg/dL 0.7-1.3 N BUN/CREATININE RATIO (test code = BUN/CREA) 34.0 10-20 H TOTAL PROTEIN (test code = PROT) 7.3 gram/dL 6.4-8.2 N ALBUMIN (test code = ALB) 2.3 g/dL 3.4-5.0 L GLOBULIN (test code = GLOB) 5.0 gram/dL 2.7-4.2 H ALBUMIN/GLOBULIN RATIO (test code = A/G) 0.5 0.75-1.50 L CALCIUM (test code = CA) 9.4 mg/dL 8.5-10.1 N BILIRUBIN TOTAL (test code = BILT) 0.20 mg/dL 0.0-1.0 N SGOT/AST (test code = AST) 27 IUnit/L 15-37 N SGPT/ALT (test code = ALT) 21 IUnit/L 12-78 N ALKALINE PHOSPHATASE TOTAL (test code = ALKP) 118 IUnit/L 45-117 H Note change in reference range due to change in reagent. LACTIC DEHYDROGENASE(LDH)2020-08-15 08:31:00* Test Item Value Reference Range Interpretation Comments LACTIC DEHYDROGENASE(LDH) (test code = LDH) 451 IUnit/L 84-246 H [id number] 08:31:00* Test Item Value Reference Range Interpretation Comments FERRITIN (test code = EDD) 689 ng/mL 8-388 H THROMBOPLASTIN TIME [id number] 08:23:00* Test Item Value Reference Range Interpretation Comments THROMBOPLASTIN TIME PARTIAL (test code = PTT) 71.6 seconds 23.0-37. 0 H IS PATIENT ON ANTICOAGULANTS? YLIST ANTICOAGULANTS HEPARINCBC W/AUTO DIFF 2020-08-15 08:13:00* Test Item Value Reference Range Interpretation Comments WHITE BLOOD CELL (test code = WBC) 16.0 K/mm3 4.5-12.5 H RED BLOOD CELL (test code = RBC) 4.55 mill/mm3 4.0-5.8 N HEMOGLOBIN (test code = HGB) 12.7 gram/dL 13.0-17.5 L HEMATOCRIT (test code = HCT) 40.7 % 42.0-52.0 L MEAN CELL VOLUME (test code = MCV) 89.5 fL 80-98 N MEAN CELL HGB (test code = MCH) 27.9 picogram 27.0-33.0 N MEAN CELL HGB CONCETRATION (test code = MCHC) 31.2 gram/dL 33.0-36. 0 L RED CELL DISTRIBUTION WIDTH (test code = RDW) 14.4 % 11.6-16. 2 N RED CELL DISTRIBUTION WIDTH SD (test code = RDW-SD) 46.7 fL 37 .0-51.0 N PLATELET COUNT (test code = PLT) 310 K/mm3 150-450 N MEAN PLATELET VOLUME (test code = MPV) 11.9 fL 6.7-11.0 H NEUTROPHIL % (test code = NT%) 74.8 % 39.0-69.0 H IMMATURE GRANULOCYTE % (test code = IG%) 0.9 % 0.0-5.0 N LYMPHOCYTE % (test code = LY%) 18.5 % 25.0-55.0 L MONOCYTE % (test code = MO%) 5.6 % 0.0-10.0 N EOSINOPHIL % (test code = EO%) 0.1 % 0.0-5.0 N BASOPHIL % (test code = BA%) 0.1 % 0.0-1.0 N NUCLEATED RBC % (test code = NRBC%) 0.0 % 0-0 N NEUTROPHIL # (test code = NT#) 12.00 K/mm3 1.8-7.7 H IMMATURE GRANULOCYTE # (test code = IG#) 0.14 x10 3/uL 0-0.03 H LYMPHOCYTE # (test code = LY#) 2.97 K/mm3 1.0-5.0 N MONOCYTE # (test code = MO#) 0.89 K/mm3 0-0.8 H EOSINOPHIL # (test code = EO#) 0.01 K/mm3 0.0-0.5 N BASOPHIL # (test code = BA#) 0.01 K/mm3 0.0-0.2 N NUCLEATED RBC # (test code = NRBC#) 0.00 K/mm3 0.0-0.1 N - XR CHEST 1 [id number] 08:06:00 [facility] ([facility])Name: IRAJ CAZARES : 1945 S ex: M FAX: Y Kan Davis MD [phone] [place]: St: [facility] FAX: Y David Rae [phone] Name: IRAJ CAZARES [facility] Ericka bacon : 1945 Age/S: 74/M [address] [facility] Unit #: [id number] Loc: [place] [address] Phys: Kan Hassan MD Acct: [id number] Dis Date: Status: ADM IN PHONE #: [phone] Exam Date: 08/15/2020926 FAX #: [phone] Reason: sob, hypoxemia EXAMS: CPT CODE: [id number] XR CHEST 1 V 99898 HISTORY: Shortness of breath and hypoxemia. COMPARISON: Previous day. Location: [facility]. Dense right lung infiltrate is u nchanged. Patchy left basal infiltrate is unchanged. No effusion or conges tion. Cardiomegaly. IMPRESSION: Dense right jessica ng infiltrate and patchy left basal infiltrate. Electronically Charlene d by Erick Payton on 08/15/2020 at 0806 Reported an d signed by: Jermaine Payton M.D. CC: Kan Hassan MD; David Rae Technologist: RT Lisette(R) Trnscrd Date/Time/By: 08/15/2020 (805) : By: [email or web address].[email or web address] Orig Print D/T: S: 08/15/2020 (926) PAGE 1 Signed Report THROMBOPLASTIN TIME [id number] 23:52:00* Test Item Value Reference Range Interpretation Comments THROMBOPLASTIN TIME PARTIAL (test code = PTT) 32.4 seconds 23.0-37. 0 N IS PATIENT ON ANTICOAGULANTS? YLIST ANTICOAGULANTS [id number] 20:50:00* Test Item Value Reference Range Interpretation Comments GLUBED (test code = GLUBED) 219 mg/dL 74-106 H Performed by certified fabric machine operator at [facility] [id number] 18:16:00* Test Item Value Reference Range Interpretation Comments GLUBED (test code = GLUBED) 163 mg/dL 74-106 H Performed by certified fabric machine operator at [facility] AG STREPTOCOCCUS [id number] 18:01:00* Test Item Value Reference Range Interpretation Comments AG STREPTOCOCCUS PNEUMO (test code = STREPPNAG) NEGATIVE NEGATI VE SAMPLE TO BE COLLECTED BY NURSE SAMPLE TO BE COLLECTED BY NURSELEGIONELLA ANTIGEN,URINE,[id number] 17:58:00* Test Item Value Reference Range Interpretation Comments LEGIONELLA ANTIGEN,URINE,ANDREA (test code = LEGAGUR) NEGATIVE NEG ATIVE SAMPLE TO BE COLLECTED BY NURSE SAMPLE TO BE COLLECTED BY NURSETHROMBOPLASTIN TIME [id number] 16:45:00* Test Item Value Reference Range Interpretation Comments THROMBOPLASTIN TIME PARTIAL (test code = PTT) 36.1 seconds 23.0-37. 0 N IS PATIENT ON ANTICOAGULANTS? YLIST ANTICOAGULANTS [id number] 12:20:00* Test Item Value Reference Range Interpretation Comments GLUBED (test code = GLUBED) 205 mg/dL 74-106 H Performed by certified fabric machine operator at [facility] THROMBOPLASTIN TIME [id number] 11:06:00* Test Item Value Reference Range Interpretation Comments THROMBOPLASTIN TIME PARTIAL (test code = PTT) 34.7 seconds 23.0-37. 0 N IS PATIENT ON ANTICOAGULANTS? YLIST ANTICOAGULANTS ASPIRIN HEPARINCOMMEN TS TO HAND DEICER ELEMENT WINDER: DRAW ON TIME FROM LEFT ARM- XR CHEST 1 [id number] 09:46:00 [facility] ([facility])Name: IRAJ CAZARES : 1945 S ex: M FAX: Alfredo Mancia MD [place]: St: [facility] FAX: Calvin Khoury MD [phone] Name: IRAJ CAZARES [facility] Ericka bacon : 1945 Age/S: 74/M [address] Unit #: [id number] Loc: [place] [address] Phys: Manolo Yadav MD Acct: [id number] Dis Date: Status: ADM IN PHONE #: [phone] Exam Date: 08/14/2020 0910 FAX #: [phone] Reason: pneumonia EXAMS: CPT CODE: [id number] XR CHEST 1 V 53014 REASON FOR EXAM: pneumonia EXAM ORDER DATE: 08/14/2020 5:00 AM Ordering: Manolo Yadav MD Attending:Alfredo Dill MD Location: PROCEDURE: - XR CHEST 1 V COMP ARISON: 08/13/2020 FINDINGS: Portable AP frontal view of the ches t obtained at 9:10 AM shows dense opacity at the right lung. There is no e vidence of effusion. The heart size is minimally enlarged. Pulmonary vascu latures are minimally congested. IMPRESSION: Persistent d ense right lung consolidation at 0946 Reported and signed by: Amadou Thompson CC: Alfredo Dill MD; Manolo Yadav MD Technologist: BE MANZANO RT; Ashlee Butler(Jessie) Trnscrd Date/Time/By: 08/14/2020 (0946) : By: Lebron Orig Print D/T: S: 10/2019 (0949) PAGE 1 Signed Repo rt [id number] 05:40:00* Test Item Value Reference Range Interpretation Comments GLUBED (test code = GLUBED) 212 mg/dL 74-106 H Performed by certified fabric machine operator at [facility] C REACTIVE [id number] 05:17:00* Test Item Value Reference Range Interpretation Comments C REACTIVE PROTEIN (test code = CRP) 21.00 mg/dL 0-0.3 H COMPREHENSIVE METABOLIC [id number] 04:42:00* Test Item Value Reference Range Interpretation Comments SODIUM (test code = NA) 143 mmol/L 136-145 N POTASSIUM (test code = K) 4.4 mmol/L 3.5-5.1 N CHLORIDE (test code = CL) 107.0 mmol/L 98-107 N CARBON DIOXIDE (test code = CO2) 28.0 mmol/L 21-32 N ANION GAP (test code = GAP) 12.4 10-20 N GLUCOSE (test code = GLU) 209 mg/dL 74-106 H BLOOD UREA NITROGEN (test code = BUN) 30 mg/dL 7-18 H GLOMERULAR FILTRATION RATE (test code = GFR) > 60 mL/min >=60 Estimated GFR by using Modified MDRD formula.Chronic kidney disease is defined as either kidney damageor GFR <60 mL/min/1.73 m2 for >3 months. CREATININE (test code = CREAT) 1.00 mg/dL 0.7-1.3 N BUN/CREATININE RATIO (test code = BUN/CREA) 30.0 10-20 H TOTAL PROTEIN (test code = PROT) 7.2 gram/dL 6.4-8.2 N ALBUMIN (test code = ALB) 2.3 g/dL 3.4-5.0 L GLOBULIN (test code = GLOB) 4.9 gram/dL 2.7-4.2 H ALBUMIN/GLOBULIN RATIO (test code = A/G) 0.5 0.75-1.50 L CALCIUM (test code = CA) 9.5 mg/dL 8.5-10.1 N BILIRUBIN TOTAL (test code = BILT) 0.30 mg/dL 0.0-1.0 N SGOT/AST (test code = AST) 37 IUnit/L 15-37 N SGPT/ALT (test code = ALT) 20 IUnit/L 12-78 N ALKALINE PHOSPHATASE TOTAL (test code = ALKP) 102 IUnit/L 45-117 N Note change in reference range due to change in reagent. [id number] 04:42:00* Test Item Value Reference Range Interpretation Comments FERRITIN (test code = EDD) 811 ng/mL 8-388 H [id number] 04:39:00* Test Item Value Reference Range Interpretation Comments FIBRINOGEN (test code = FIB) 913 mg/dL 200-400 H COMPREHENSIVE METABOLIC [id number] 04:34:00* Test Item Value Reference Range Interpretation Comments SODIUM (test code = NA) 143 mmol/L 136-145 N POTASSIUM (test code = K) 4.4 mmol/L 3.5-5.1 N CHLORIDE (test code = CL) 107.0 mmol/L 98-107 N CARBON DIOXIDE (test code = CO2) mmol/L 21-32 ANION GAP (test code = GAP) 10-20 GLUCOSE (test code = GLU) mg/dL 74-106 BLOOD UREA NITROGEN (test code = BUN) mg/dL 7-18 GLOMERULAR FILTRATION RATE (test code = GFR) mL/min >=60 CREATININE (test code = CREAT) mg/dL 0.7-1.3 BUN/CREATININE RATIO (test code = BUN/CREA) 10-20 TOTAL PROTEIN (test code = PROT) gram/dL 6.4-8.2 ALBUMIN (test code = ALB) g/dL 3.4-5.0 GLOBULIN (test code = GLOB) gram/dL 2.7-4.2 ALBUMIN/GLOBULIN RATIO (test code = A/G) 0.75-1.50 CALCIUM (test code = CA) mg/dL 8.5-10.1 BILIRUBIN TOTAL (test code = BILT) mg/dL 0.0-1.0 SGOT/AST (test code = AST) IUnit/L 15-37 SGPT/ALT (test code = ALT) IUnit/L 12-78 ALKALINE PHOSPHATASE TOTAL (test code = ALKP) IUnit/L 45-117 [id number] 04:34:00* Test Item Value Reference Range Interpretation Comments FERRITIN (test code = EDD) ng/mL 8-388 CBC W/AUTO [id number] 04:23:00* Test Item Value Reference Range Interpretation Comments WHITE BLOOD CELL (test code = WBC) 15.7 K/mm3 4.5-12.5 H RED BLOOD CELL (test code = RBC) 4.03 mill/mm3 4.0-5.8 N HEMOGLOBIN (test code = HGB) 11.5 gram/dL 13.0-17.5 L HEMATOCRIT (test code = HCT) 36.3 % 42.0-52.0 L MEAN CELL VOLUME (test code = MCV) 90.1 fL 80-98 N MEAN CELL HGB (test code = MCH) 28.5 picogram 27.0-33.0 N MEAN CELL HGB CONCETRATION (test code = MCHC) 31.7 gram/dL 33.0-36. 0 L RED CELL DISTRIBUTION WIDTH (test code = RDW) 14.1 % 11.6-16. 2 N RED CELL DISTRIBUTION WIDTH SD (test code = RDW-SD) 46.7 fL 37 .0-51.0 N PLATELET COUNT (test code = PLT) 286 K/mm3 150-450 N MEAN PLATELET VOLUME (test code = MPV) 12.0 fL 6.7-11.0 H NEUTROPHIL % (test code = NT%) 82.7 % 39.0-69.0 H IMMATURE GRANULOCYTE % (test code = IG%) 0.5 % 0.0-5.0 N LYMPHOCYTE % (test code = LY%) 14.0 % 25.0-55.0 L MONOCYTE % (test code = MO%) 2.7 % 0.0-10.0 N EOSINOPHIL % (test code = EO%) 0.0 % 0.0-5.0 N BASOPHIL % (test code = BA%) 0.1 % 0.0-1.0 N NUCLEATED RBC % (test code = NRBC%) 0.0 % 0-0 N NEUTROPHIL # (test code = NT#) 12.97 K/mm3 1.8-7.7 H IMMATURE GRANULOCYTE # (test code = IG#) 0.08 x10 3/uL 0-0.03 H LYMPHOCYTE # (test code = LY#) 2.20 K/mm3 1.0-5.0 N MONOCYTE # (test code = MO#) 0.42 K/mm3 0-0.8 N EOSINOPHIL # (test code = EO#) 0.00 K/mm3 0.0-0.5 N BASOPHIL # (test code = BA#) 0.01 K/mm3 0.0-0.2 N NUCLEATED RBC # (test code = NRBC#) 0.00 K/mm3 0.0-0.1 N MANUAL DIFF REQUIRED (test code = MDIFF) NO [id number] 21:08:00* Test Item Value Reference Range Interpretation Comments GLUBED (test code = GLUBED) 180 mg/dL 74-106 H Performed by certified fabric machine operator at [facility] [id number] 18:25:00* Test Item Value Reference Range Interpretation Comments GLUBED (test code = GLUBED) 176 mg/dL 74-106 H Performed by certified fabric machine operator at [facility] [id number] 15:28:00* Test Item Value Reference Range Interpretation Comments GLYCOSYLATED HEMOGLOBIN (HA1C) (test code = GLYHGB) 6.8 % HbA1 SUGGESTED DIAGNOSIS: HbA1C (%) Diabetic >6.4Prediabetes 5.7 - 6.4Normal <5.7 ESTIMATED AVERAGE GLUCOSE (test code = EAG) 148 MG/DL LIPID PROFILE (CORONARY RISK)2020-08-13 15:22:00* Test Item Value Reference Range Interpretation Comments TRIGLYCERIDES (test code = TRIG) 163 mg/dL 20-150 H CHOLESTEROL (test code = CHOL) 139 mg/dL 0-200 N CHOLESTEROL/HDL RATIO (test code = CHOLHDL) 6.0 RATIO 0-4.9 H RISK ASSOCIATED WITH CHOL/HDL RATIOS: Risk Male Female1/2 AVERAGE 3.43 3.27AVERAGE 4.97 4.442X AVERAGE 9.55 7.053X AVERAGE 23.39 11.04 REFERENCE VALUE IS RELATED TO RISK LEVELS ASRECOMMENDED BY THE LISSETTE. HEART, LUNG, AND BLOOD INST. HDL CHOLESTEROL (test code = HDL) 20 mg/dL 40-60 L LIPOPROTEIN LDL (test code = LDL) 83 mg/dL 100-129 L Reference Interval: mg/dL mmol/L Optimal <100 <2.6Near/above optimal 100-129 2.6- 3.3Borderline High 130-159 3.4-4.1High 160-189 4.1-4.9Very High >=190 >=4.9========= This LDL result is a direct measurement.========= - CT CHEST W/O [id number] 12:10:00 [facility] 1945 S ex: M Name: IRAJ CAZARES [facility] : 1945 Ag e/S: 74 / M [facility] #: [id number] Loc: [place] [address] Phys: Arlene Adrian MD Acct: [id number] Dis Date: Status: ADM IN PHONE #: [phone] Exam Date: 08/13/2020 [facility] FAX #: [phone] Reason: Dyspnea EXAMS: CPT CODE: [id number] CT CHEST W/O CONTRAST 19608 REASON FOR EXAM: Dyspnea EXAM ORDER DATE: 08/13/2020 10:23 AM Ordering: Arlene Adrian MD Attending:Alfredo Dill MD Location:[facility] COMPARISON: PROCEDURE: - CT CHEST W/O CONTRAST FINDINGS: CT images of the chest were obtained without IV contrast. Reconstructed sagittal and ten nal images of the chest were provided for interpretation. Dose modulation , iterative reconstruction, and/or weight based adjustment of the MA/KV wa s utilized to reduce the radiation dose to as low as reasonably achievable . The heart size is minimally enlarged. No evidence of pericardi al effusion. Nonspecific diffuse atherosclerotic calcification of the right coronary and left anterior descending coronary arteries. 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 The thoracic aorta i s aorta is unremarkable. Small (1-2 cm) nonspecific inflammatory nodes in the right paratracheal space. 3 cm subcarinal node. IMPRESSION: Diffuse groundglass consolidation/atelectasis of the right lung with a small right pleural effusion. Minimal right shift of the m ediastinum secondary to right lung atelectasis. The left lung is well ae rated. Nonspecific subcentimeter nodule in the left base suggestive of n oncalcified granuloma (Image 41 series 3). 3 cm adenopathy in the subcar inal area. If clinically suspicious for malignancy, percutaneous biopsy of the lesion is recommended Electronically Signed by Erick Arevalo 08/13/2020 at 1210 Reported and signed by: Gardenia Thompson CC: Arlene Adrian MD; Alfredo Dill MD Technologist :Jesusita Souza RT(R) CTDI: DLP: Trnscb Date/Time: 07/16 (1210) [email or web address] Orig Print D/T: S: 08/13/2020 (12 14) PAGE 1 Signed Report [id number] 12:09:00* Test Item Value Reference Range Interpretation Comments TROPONIN-I (test code = TROPI) 6.180 ng/mL 0-0.045 HH Results previously called to by NYLA 08/13/20 1209 ARTERIAL BLOOD [id number] 06:44:00* Test Item Value Reference Range Interpretation Comments ARTERIAL BLOOD GAS PH (test code = PHA) 7.48 7.35-7.45 H ARTERIAL BLOOD GAS PCO2 (test code = PCO2A) 31.0 mm Hg 35-45 L ARTERIAL BLOOD GAS PO2 (test code = PO2A) 86.2 mmHg 80-100 N BICARBONATE TOTAL HCO3 (test code = HCO3) 22.8 mmol/L 23.0-27.0 L BASE EXCESS (test code = CECILE) 0.2 mmol/L -3.0-5.0 N ABG O2 SATURATION (test code = SATA) 96.8 % 90.0-98.0 N ABG TYPE (test code = TYPEA) Arterial FIO2 (test code = FIO2A) 55.0 ABG SITE (test code = SITEA) Rt RADIAL ARTERY MODIFIED ALLENS (test code = MODALL) Yes CHECK PERFORMED HEMATOCRIT (test code = HCT/ABG) 38 % 42-52 L TOTAL HGB (test code = THB) 13.0 gram/dL 13.0-17.5 N HGB O2 SAT (test code = HBOSAT) 96.0 % 94.00-98.00 N CARBOXYHEMOGLOBIN (test code = HOHGBT) 0.6 %totalHg 0.5-1.5 N METHEMOGLOBIN (test code = METHGB) 0.2 % 0.0-1.50 N O2 CONTENT (test code = O2CT) 17.6 % vol 18.0-22.0 L PaO2/[id number] 06:44:00* Test Item Value Reference Range Interpretation Comments PaO2/FiO2 (test code = [id number]) mm/Hg ARTERIAL BLOOD [id number] 06:44:00* Test Item Value Reference Range Interpretation Comments ARTERIAL BLOOD GAS PH (test code = PHA) 7.48 7.35-7.45 H ARTERIAL BLOOD GAS PCO2 (test code = PCO2A) 31.0 mm Hg 35-45 L ARTERIAL BLOOD GAS PO2 (test code = PO2A) 86.2 mmHg 80-100 N BICARBONATE TOTAL HCO3 (test code = HCO3) 22.8 mmol/L 23.0-27.0 L BASE EXCESS (test code = CECILE) 0.2 mmol/L -3.0-5.0 N ABG O2 SATURATION (test code = SATA) 96.8 % 90.0-98.0 N ABG TYPE (test code = TYPEA) Arterial FIO2 (test code = FIO2A) 55.0 ABG SITE (test code = SITEA) Rt RADIAL ARTERY MODIFIED ALLENS (test code = MODALL) Yes CHECK PERFORMED HEMATOCRIT (test code = HCT/ABG) 38 % 42-52 L TOTAL HGB (test code = THB) 13.0 gram/dL 13.0-17.5 N HGB O2 SAT (test code = HBOSAT) 96.0 % 94.00-98.00 N CARBOXYHEMOGLOBIN (test code = HOHGBT) 0.6 %totalHg 0.5-1.5 N METHEMOGLOBIN (test code = METHGB) 0.2 % 0.0-1.50 N O2 CONTENT (test code = O2CT) 17.6 % vol 18.0-22.0 L PaO2/[id number] 06:44:00* Test Item Value Reference Range Interpretation Comments PaO2/FiO2 (test code = [id number]) 156.70 mm/Hg CBC W/AUTO [id number] 06:16:00* Test Item Value Reference Range Interpretation Comments WHITE BLOOD CELL (test code = WBC) 12.9 K/mm3 4.5-12.5 H RED BLOOD CELL (test code = RBC) 4.19 mill/mm3 4.0-5.8 N HEMOGLOBIN (test code = HGB) 11.6 gram/dL 13.0-17.5 L HEMATOCRIT (test code = HCT) 37.0 % 42.0-52.0 L MEAN CELL VOLUME (test code = MCV) 88.3 fL 80-98 N MEAN CELL HGB (test code = MCH) 27.7 picogram 27.0-33.0 N MEAN CELL HGB CONCETRATION (test code = MCHC) 31.4 gram/dL 33.0-36. 0 L RED CELL DISTRIBUTION WIDTH (test code = RDW) 13.8 % 11.6-16. 2 N RED CELL DISTRIBUTION WIDTH SD (test code = RDW-SD) 44.8 fL 37 .0-51.0 N PLATELET COUNT (test code = PLT) 243 K/mm3 150-450 N MEAN PLATELET VOLUME (test code = MPV) 11.9 fL 6.7-11.0 H NEUTROPHIL % (test code = NT%) 81.8 % 39.0-69.0 H IMMATURE GRANULOCYTE % (test code = IG%) 0.6 % 0.0-5.0 N LYMPHOCYTE % (test code = LY%) 13.9 % 25.0-55.0 L MONOCYTE % (test code = MO%) 3.6 % 0.0-10.0 N EOSINOPHIL % (test code = EO%) 0.0 % 0.0-5.0 N BASOPHIL % (test code = BA%) 0.1 % 0.0-1.0 N NUCLEATED RBC % (test code = NRBC%) 0.0 % 0-0 N NEUTROPHIL # (test code = NT#) 10.55 K/mm3 1.8-7.7 H IMMATURE GRANULOCYTE # (test code = IG#) 0.08 x10 3/uL 0-0.03 H LYMPHOCYTE # (test code = LY#) 1.80 K/mm3 1.0-5.0 N MONOCYTE # (test code = MO#) 0.47 K/mm3 0-0.8 N EOSINOPHIL # (test code = EO#) 0.00 K/mm3 0.0-0.5 N BASOPHIL # (test code = BA#) 0.01 K/mm3 0.0-0.2 N NUCLEATED RBC # (test code = NRBC#) 0.00 K/mm3 0.0-0.1 N MANUAL DIFF REQUIRED (test code = MDIFF) NO BASIC METABOLIC [id number] 05:46:00* Test Item Value Reference Range Interpretation Comments SODIUM (test code = NA) 140 mmol/L 136-145 N POTASSIUM (test code = K) 3.7 mmol/L 3.5-5.1 N CHLORIDE (test code = CL) 107.0 mmol/L 98-107 N CARBON DIOXIDE (test code = CO2) 23.0 mmol/L 21-32 N ANION GAP (test code = GAP) 13.7 10-20 N GLUCOSE (test code = GLU) 202 mg/dL 74-106 H BLOOD UREA NITROGEN (test code = BUN) 26 mg/dL 7-18 H GLOMERULAR FILTRATION RATE (test code = GFR) 50 mL/min >=60 Estimated GFR by using Modified MDRD formula.Chronic kidney disease is defined as either kidney damageor GFR <60 mL/min/1.73 m2 for >3 months. CREATININE (test code = CREAT) 1.40 mg/dL 0.7-1.3 H BUN/CREATININE RATIO (test code = BUN/CREA) 18.6 10-20 N CALCIUM (test code = CA) 9.6 mg/dL 8.5-10.1 N LIPID PROFILE (CORONARY RISK)2020-08-13 05:46:00* Test Item Value Reference Range Interpretation Comments TRIGLYCERIDES (test code = TRIG) 156 mg/dL 20-150 H CHOLESTEROL (test code = CHOL) 135 mg/dL 0-200 N CHOLESTEROL/HDL RATIO (test code = CHOLHDL) 7.0 RATIO 0-4.9 H RISK ASSOCIATED WITH CHOL/HDL RATIOS: Risk Male Female1/2 AVERAGE 3.43 3.27AVERAGE 4.97 4.442X AVERAGE 9.55 7.053X AVERAGE 23.39 11.04 REFERENCE VALUE IS RELATED TO RISK LEVELS ASRECOMMENDED BY THE LISSETTE. HEART, LUNG, AND BLOOD INST. HDL CHOLESTEROL (test code = HDL) 19 mg/dL 40-60 L LIPOPROTEIN LDL (test code = LDL) 85 mg/dL 100-129 L Reference Interval: mg/dL mmol/L Optimal <100 <2.6Near/above optimal 100-129 2.6- 3.3Borderline High 130-159 3.4-4.1High 160-189 4.1-4.9Very High >=190 >=4.9========= This LDL result is a direct measurement.========= [id number] 05:46:00* Test Item Value Reference Range Interpretation Comments MAGNESIUM (test code = MAG) 2.8 mg/dL 1.8-2.4 H [id number] 05:46:00* Test Item Value Reference Range Interpretation Comments TROPONIN-I (test code = TROPI) 6.560 ng/mL 0-0.045 HH RESULT VERIFIED BY REPEAT ANALYSIS THROMBOPLASTIN TIME [id number] 05:36:00* Test Item Value Reference Range Interpretation Comments THROMBOPLASTIN TIME PARTIAL (test code = PTT) 30.6 seconds 23.0-37. 0 N IS PATIENT ON ANTICOAGULANTS? NBASIC METABOLIC [id number] 05:23:00* Test Item Value Reference Range Interpretation Comments SODIUM (test code = NA) 140 mmol/L 136-145 N POTASSIUM (test code = K) 3.7 mmol/L 3.5-5.1 N CHLORIDE (test code = CL) 107.0 mmol/L 98-107 N CARBON DIOXIDE (test code = CO2) mmol/L 21-32 ANION GAP (test code = GAP) 10-20 GLUCOSE (test code = GLU) mg/dL 74-106 BLOOD UREA NITROGEN (test code = BUN) mg/dL 7-18 GLOMERULAR FILTRATION RATE (test code = GFR) mL/min >=60 CREATININE (test code = CREAT) mg/dL 0.7-1.3 BUN/CREATININE RATIO (test code = BUN/CREA) 10-20 CALCIUM (test code = CA) mg/dL 8.5-10.1 LIPID PROFILE (CORONARY RISK)2020-08-13 05:23:00* Test Item Value Reference Range Interpretation Comments TRIGLYCERIDES (test code = TRIG) mg/dL 20-150 CHOLESTEROL (test code = CHOL) mg/dL 0-200 CHOLESTEROL/HDL RATIO (test code = CHOLHDL) RATIO 0-4.9 HDL CHOLESTEROL (test code = HDL) mg/dL 40-60 LIPOPROTEIN LDL (test code = LDL) mg/dL 100-129 [id number] 05:23:00* Test Item Value Reference Range Interpretation Comments MAGNESIUM (test code = MAG) mg/dL 1.8-2.4 [id number] 05:23:00* Test Item Value Reference Range Interpretation Comments TROPONIN-I (test code = TROPI) ng/mL 0-0.045 [id number] 05:09:00* Test Item Value Reference Range Interpretation Comments HEMATOCRIT (test code = HCT) 38.0 % 42.0-52.0 L PLATELET [id number] 05:09:00* Test Item Value Reference Range Interpretation Comments PLATELET COUNT (test code = PLT) 265 K/mm3 150-450 N URINALYSIS [id number] 04:32:00* Test Item Value Reference Range Interpretation Comments UA COLOR (test code = COLU) Light-Yellow YELLOW UA APPEARANCE (test code = APPU) CLEAR CLEAR UA GLUCOSE DIPSTICK (test code = DGLUU) NEGATIVE mg/dL NEGATIVE UA BILIRUBIN DIPSTICK (test code = BILU) NEGATIVE mg/dL NEGATIVE UA KETONE DIPSTICK (test code = KETU) NEGATIVE mg/dL NEGATIVE UA SPECIFIC GRAVITY (test code = SGU) 1.013 1.001-1.035 UA BLOOD DIPSTICK (test code = KAYLAN) 0.1 mg/dL (1+) mg/dL NEGATIVE A UA PH DIPSTICK (test code = MIRIAN) 5.5 5.0-8.0 UA PROTEIN DIPSTICK (test code = PROU) 100 (2+) mg/dL NEGATIVE A UA UROBILINIOGEN DIPSTICK (test code = URO) Normal mg/dL NEGATIVE UA NITRITE DIPSTICK (test code = LANCE) NEGATIVE NEGATIVE UA LEUKOCYTE ESTERASE W REFLEX (test code = LEUUR) NEGATIVE Davidson/uL NEGATIVE UA WBC (test code = WBCU) 0-5 per HPF 0-5 UA RBC (test code = RBCU) 0-2 #/HPF 0-5 UA EPITHELIAL CELLS (test code = EPIU) FEW per HPF FEW UA BACTERIA (test code = BACU) FEW #/HPF NONE A UA HYALINE CAST (test code = HYALU) 6-10 #/LPF 0-5 A UA MUCUS (test code = MUCU) FEW #/LPF FEW Urine Source? Clean CatchB-TYPE NATRIURETIC [id number] 04:00:00* Test Item Value Reference Range Interpretation Comments B-TYPE NATRIURETIC PEPTIDE (test code = BNP) 642.85 pgram/mL 0-100 H BASIC METABOLIC [id number] 03:30:00* Test Item Value Reference Range Interpretation Comments SODIUM (test code = NA) 140 mmol/L 136-145 N POTASSIUM (test code = K) 4.1 mmol/L 3.5-5.1 N CHLORIDE (test code = CL) 106.0 mmol/L 98-107 N CARBON DIOXIDE (test code = CO2) 26.0 mmol/L 21-32 N ANION GAP (test code = GAP) 12.1 10-20 N GLUCOSE (test code = GLU) 201 mg/dL 74-106 H BLOOD UREA NITROGEN (test code = BUN) 24 mg/dL 7-18 H GLOMERULAR FILTRATION RATE (test code = GFR) 50 mL/min >=60 Estimated GFR by using Modified MDRD formula.Chronic kidney disease is defined as either kidney damageor GFR <60 mL/min/1.73 m2 for >3 months. CREATININE (test code = CREAT) 1.40 mg/dL 0.7-1.3 H BUN/CREATININE RATIO (test code = BUN/CREA) 17.1 10-20 N CALCIUM (test code = CA) 9.6 mg/dL 8.5-10.1 N HEPATIC FUNCTION [id number] 03:30:00* Test Item Value Reference Range Interpretation Comments TOTAL PROTEIN (test code = PROT) 8.4 gram/dL 6.4-8.2 H ALBUMIN (test code = ALB) 2.8 g/dL 3.4-5.0 L GLOBULIN (test code = GLOB) 5.6 gram/dL 2.7-4.2 H ALBUMIN/GLOBULIN RATIO (test code = A/G) 0.5 0.75-1.50 L BILIRUBIN TOTAL (test code = BILT) 0.30 mg/dL 0.0-1.0 N BILIRUBIN DIRECT (test code = BILD) 0.15 mg/dL 0.0-0.20 N SGOT/AST (test code = AST) 47 IUnit/L 15-37 H SGPT/ALT (test code = ALT) 19 IUnit/L 12-78 N ALKALINE PHOSPHATASE TOTAL (test code = ALKP) 106 IUnit/L 45-117 N Note change in reference range due to change in reagent. LACTIC DEHYDROGENASE(LDH)2020-08-13 03:30:00* Test Item Value Reference Range Interpretation Comments LACTIC DEHYDROGENASE(LDH) (test code = LDH) 509 IUnit/L 84-246 H [id number] 03:30:00* Test Item Value Reference Range Interpretation Comments LIPASE (test code = LIP) 38 U/L 73.0-393.0 L [id number] 03:30:00* Test Item Value Reference Range Interpretation Comments TROPONIN-I (test code = TROPI) 6.180 ng/mL 0-0.045 HH Results called to [id number] by EZEQUIEL 08/13/20 0329Critical results verified and read back by Nurse? Y [id number] 03:30:00* Test Item Value Reference Range Interpretation Comments FERRITIN (test code = EDD) 666 ng/mL 8-388 H CBC W/AUTO [id number] 02:30:00* Test Item Value Reference Range Interpretation Comments WHITE BLOOD CELL (test code = WBC) 13.3 K/mm3 4.5-12.5 H RED BLOOD CELL (test code = RBC) 4.26 mill/mm3 4.0-5.8 N HEMOGLOBIN (test code = HGB) 12.2 gram/dL 13.0-17.5 L HEMATOCRIT (test code = HCT) 37.7 % 42.0-52.0 L MEAN CELL VOLUME (test code = MCV) 88.5 fL 80-98 N MEAN CELL HGB (test code = MCH) 28.6 picogram 27.0-33.0 N MEAN CELL HGB CONCETRATION (test code = MCHC) 32.4 gram/dL 33.0-36. 0 L RED CELL DISTRIBUTION WIDTH (test code = RDW) 13.7 % 11.6-16. 2 N RED CELL DISTRIBUTION WIDTH SD (test code = RDW-SD) 44.3 fL 37 .0-51.0 N PLATELET COUNT (test code = PLT) 258 K/mm3 150-450 N MEAN PLATELET VOLUME (test code = MPV) 12.4 fL 6.7-11.0 H NEUTROPHIL % (test code = NT%) 84.2 % 39.0-69.0 H IMMATURE GRANULOCYTE % (test code = IG%) 0.5 % 0.0-5.0 N LYMPHOCYTE % (test code = LY%) 12.2 % 25.0-55.0 L MONOCYTE % (test code = MO%) 2.9 % 0.0-10.0 N EOSINOPHIL % (test code = EO%) 0.0 % 0.0-5.0 N BASOPHIL % (test code = BA%) 0.2 % 0.0-1.0 N NUCLEATED RBC % (test code = NRBC%) 0.0 % 0-0 N NEUTROPHIL # (test code = NT#) 11.22 K/mm3 1.8-7.7 H IMMATURE GRANULOCYTE # (test code = IG#) 0.06 x10 3/uL 0-0.03 H LYMPHOCYTE # (test code = LY#) 1.62 K/mm3 1.0-5.0 N MONOCYTE # (test code = MO#) 0.39 K/mm3 0-0.8 N EOSINOPHIL # (test code = EO#) 0.00 K/mm3 0.0-0.5 N BASOPHIL # (test code = BA#) 0.02 K/mm3 0.0-0.2 N NUCLEATED RBC # (test code = NRBC#) 0.00 K/mm3 0.0-0.1 N MANUAL DIFF REQUIRED (test code = MDIFF) NO PROTHROMBIN [id number] 02:25:00* Test Item Value Reference Range Interpretation Comments PROTHROMBIN TIME PATIENT (test code = PTP) 17.1 seconds 9.0-14.0 H INTERNATIONAL NORMAL RATIO (test code = INR) 1.5 0.8-1.2 H The therapeutic range for oral anticoagulant therapy formost indications is an international normalized ratio (INR)of between 2.0 and 3.0. The recommended therapeutic INRrange for various clinical situations is listed below: Clinical Situation INR range Pulmonary e mbolism treatment (2.0-3.0)Venous thrombosis treatmentVenous thrombosis prophylaxis (high risk surgery)Prevention of systemic embolism from: Acute myocardial infarction Valvular heart disease Atrial fibrillation Mechanical prosthetic heart valves (2.5-3.5) IS PATIENT ON ANTICOAGULANTS? NTHROMBOPLASTIN TIME [id number] 02:25:00* Test Item Value Reference Range Interpretation Comments THROMBOPLASTIN TIME PARTIAL (test code = PTT) 31.2 seconds 23.0-37. 0 N IS PATIENT ON ANTICOAGULANTS? NCOVID 19 INHOUSE [id number] 02:25:00* Test Item Value Reference Range Interpretation Comments COVID 19 INHOUSE AG (test code = [id number]) NEGATIVE C REACTIVE [id number] 02:14:00* Test Item Value Reference Range Interpretation Comments C REACTIVE PROTEIN (test code = CRP) 38.70 mg/dL 0-0.3 H - XR CHEST 1 [id number] 01:53:00 [facility] 1945 S ex: M FAX: Juan Pablo Davis DO [phone] [place]: B St: REG Name: IRAJ CAZARES [facility] : 1945 Age/S: 74/M [address] [facility] Unit #: [id number] Loc: [place] [address] Phys: Juan Pablo Sesay DO Acct: [id number] Dis Date: Status: REG ER PHONE #: [phone] Exam Date: 08/13/2020 0141 FAX #: [phone] Reason: SHORTNESS OF BREATH EXAMS: CPT CODE: [id number] XR CHEST 1 V [id number] AFTER HOURS SERVICE ON: 08/13/2020 1:52 AM AP Portable Chest Location Code M12 HISTORY: SHORTNESS OF BREATH FINDINGS: There are large alve olar and ground glass infiltrate in the right hemithorax. Left hemidiaphr agm is elevated. There is no pleural effusion or pneumothorax. Cardiac s ilhouette is within normal limits. Sternotomy wires are in place. IMPRESSION: Large asymmetric alveolar and groundgl ass infiltrate in the right hemithorax. Findings are consistent with pn eumonia or less likely asymmetric edema. Electronical ly Signed by Ty Cortes M.D. on 08/13/2020 at 0153 Reported and signed by: Ty Cortes M.D. CC: Juan Pablo Sesay DO Technologist: Piotr Freeman RT(R); BEATA MAZARIEGOS RT(R) Trnprrd Date/Time/By: 08/13/2020 (0153) : By: [email or web address] Orig Print D /T: S: 08/13/2020 (0156) PAGE 1 S igned Report LACTIC [id number] 01:49:00* Test Item Value Reference Range Interpretation Comments LACTIC ACID (test code = LACT) 1.5 mmol/L 0.4-1.9 N BASIC METABOLIC [id number] 01:48:00* Test Item Value Reference Range Interpretation Comments SODIUM (test code = NA) 140 mmol/L 136-145 N POTASSIUM (test code = K) 4.1 mmol/L 3.5-5.1 N CHLORIDE (test code = CL) 106.0 mmol/L 98-107 N CARBON DIOXIDE (test code = CO2) mmol/L 21-32 ANION GAP (test code = GAP) 10-20 GLUCOSE (test code = GLU) mg/dL 74-106 BLOOD UREA NITROGEN (test code = BUN) mg/dL 7-18 GLOMERULAR FILTRATION RATE (test code = GFR) mL/min >=60 CREATININE (test code = CREAT) mg/dL 0.7-1.3 BUN/CREATININE RATIO (test code = BUN/CREA) 10-20 CALCIUM (test code = CA) mg/dL 8.5-10.1 HEPATIC FUNCTION [id number] 01:48:00* Test Item Value Reference Range Interpretation Comments TOTAL PROTEIN (test code = PROT) gram/dL 6.4-8.2 ALBUMIN (test code = ALB) g/dL 3.4-5.0 GLOBULIN (test code = GLOB) gram/dL 2.7-4.2 ALBUMIN/GLOBULIN RATIO (test code = A/G) 0.75-1.50 BILIRUBIN TOTAL (test code = BILT) mg/dL 0.0-1.0 BILIRUBIN DIRECT (test code = BILD) mg/dL 0.0-0.20 SGOT/AST (test code = AST) IUnit/L 15-37 SGPT/ALT (test code = ALT) IUnit/L 12-78 ALKALINE PHOSPHATASE TOTAL (test code = ALKP) IUnit/L 45-117 LACTIC DEHYDROGENASE(LDH)2020-08-13 01:48:00* Test Item Value Reference Range Interpretation Comments LACTIC DEHYDROGENASE(LDH) (test code = LDH) IUnit/L 84-246 [id number] 01:48:00* Test Item Value Reference Range Interpretation Comments LIPASE (test code = LIP) U/L 73.0-393.0 [id number] 01:48:00* Test Item Value Reference Range Interpretation Comments TROPONIN-I (test code = TROPI) ng/mL 0-0.045 [id number] 01:48:00* Test Item Value Reference Range Interpretation Comments FERRITIN (test code = EDD) ng/mL 8-388 CT CHEST [id number] 21:05:00 [facility] : 1945 Sex: M [facility] [address] [place] [address] Patient Name: IRAJ CAZARES MR #: [id number] : 1945 [facility] 74[id number] Req #: [id number] Adm Physician: Vazquez bernstein by: BASSEM BROWNLEE MD Report #: [id number] Location: ER Room/Bed: Procedure: [id number] CT/CT CHEST WO Exam Date: 0 Exam Time: 2016 REPORT STATUS: Signed EXAM: CT Chest WITHOUT contrast INDICATION: SOB COMPARISON: None TECHNIQUE: Chest was scanned utilizing a multi detector helical scanner from the lung apex through the level of the adrenal g lands without administration of IV contrast. Absence of intravenous contrast d ecreases sensitivity for detection of lymphadenopathy and vascular pathology. Coronal and sagittal reformations were obtained. Routine protocol was performe d. IV CONTRAST: None COMPLICATIONS: None FINDINGS : LUNGS AND AIRWAYS: Severe diffuse groundglass opacities throughout the ri ght lung with septal thickening and patchy peripheral consolidative opacities. Scattered mild peripheral groundglass opacities throughout the left lung. PLEURA: Trace right pleural effusion HEART AND MEDIASTINUM: Enlarged medi astinal lymph nodes includin.5 cm right paratracheal lymph node. 2.0 cm subcarinal lymph node. 1.6 cm right hilar lymph node. Mild cardiomegaly. No pericardial effusion. UPPER ABDOMEN: Scattered hepatic cysts. BONE S: There are degenerative changes in the thoracic spine. Sternotomy wires. SOFT TISSUES: Unremarkable. IMPRESSION: 1. Asymmetric severe diffuse g roundglass opacification of the right lung with interlobular septal thickening and peripheral consolidative opacities with mild disease in the left lung. Fi ndings are most concerning for an infectious/inflammatory process including vi ral and atypical pneumonia. Broad differential also includes ARDS, alveolar h emorrhage, alveolar proteinosis, and asymmetric edema. Recommend follow-up CT in 6-8 weeks to document resolution. 2. Enlarged mediastinal lymph nodes may be reactive, but are somewhat larger than expected raising the possibility of metastatic disease. These can be reassessed on recommended follow-up CT. Signed by: David Moralez MD on 08/12/2020 9:21 PM Dictated By: DAVID MORALEZ MD 20 Transcrib ed By: ULICES on 08/12/202120 COPY TO: BASSEM BROWNLEE MD Bedside [id number] 16:08:00* Test Item Value Reference Range Interpretation Comments Bedside Glucose (test code = 81861-1) 141 70-120 H Meter ID: [id number] 2018-06-06 06:12:00* Test Item Value Reference Range Interpretation Comments White Blood Count (test code = 6690-2) 9.18 4.8-10.8 [facility] [id number] 06:12:00* Test Item Value Reference Range Interpretation Comments Red Blood Count (test code = 789-8) 4.68 4.3-5.7 [facility]2018-08-24 06:12:00* Test Item Value Reference Range Interpretation Comments Hemoglobin (test code = 86731-8) 13.8 14.0-18.0 L [facility]ematocrit2018-08-24 06:12:00* Test Item Value Reference Range Interpretation Comments Hematocrit (test code = 4544-3) 41.9 38.2-49.6 [facility]Mean Corpuscular Wnccgo5521-62-12 06:12:00* Test Item Value Reference Range Interpretation Comments Mean Corpuscular Volume (test code = 787-2) 89.5 81-99 [facility]Mean Corpuscular Wfrpigiuvz5421-97-96 06:12:00* Test Item Value Reference Range Interpretation Comments Mean Corpuscular Hemoglobin (test code = 785-6) 29.5 28-32 [facility] Corpuscular Hemoglobin Concent 2018-06-06 06:12:00* Test Item Value Reference Range Interpretation Comments Mean Corpuscular Hemoglobin Concent (test code = 786-4) 32.9 31-35 [facility]Red Cell Distribution Ycnen7235-49-06 06:12:00* Test Item Value Reference Range Interpretation Comments Red Cell Distribution Width (test code = 53218-8) 13.5 11.7 -14.4 [facility] SoutheastPlatelet Nkjtg3601-04-53 06:12:00* Test Item Value Reference Range Interpretation Comments Platelet Count (test code = 777-3) 186 140-360 [facility] SoutheastNeutrophils (%) (Auto)2018-06-06 06:12:00 * Test Item Value Reference Range Interpretation Comments Neutrophils (%) (Auto) (test code = 46815-9) 62.4 38.7-80.0 [facility] SoutheastLymphocytes (%) (Auto)2018-06-06 06:12:00 * Test Item Value Reference Range Interpretation Comments Lymphocytes (%) (Auto) (test code = 736-9) 27.5 18.0-39.1 [facility] SoutheastMonocytes (%) (Auto)2018-06-06 06:12:00* Test Item Value Reference Range Interpretation Comments Monocytes (%) (Auto) (test code = 5905-5) 8.9 4.4-11.3 [facility]Eosinophils (%) (Auto)2018-06-06 06:12:00 * Test Item Value Reference Range Interpretation Comments Eosinophils (%) (Auto) (test code = 713-8) 0.5 0.0-6.0 [facility] SoutheastBasophils (%) (Auto)2018-06-06 06:12:00* Test Item Value Reference Range Interpretation Comments Basophils (%) (Auto) (test code = 706-2) 0.3 0.0-1.0 [facility] SoutheastIM GRANULOCYTES %2018-06-06 06:12:00* Test Item Value Reference Range Interpretation Comments IM GRANULOCYTES % (test code = IM GRANULOCYTES %) 0.4 0.0- 1.0 [facility] SoutheastNeutrophils # (Auto)2018-06-06 06:12:00* Test Item Value Reference Range Interpretation Comments Neutrophils # (Auto) (test code = 751-8) 5.7 2.1-6.9 [facility] SoutheastLymphocytes # (Auto)2018-06-06 06:12:00* Test Item Value Reference Range Interpretation Comments Lymphocytes # (Auto) (test code = 82539-6) 2.5 1.0-3.2 [facility] SoutheastMonocytes # (Auto)2018-06-06 06:12:00* Test Item Value Reference Range Interpretation Comments Monocytes # (Auto) (test code = 742-7) 0.8 0.2-0.8 [facility]Eosinophils # (Auto)2018-06-06 06:12:00* Test Item Value Reference Range Interpretation Comments Eosinophils # (Auto) (test code = 711-2) 0.1 0.0-0.4 [facility]Basophils # (Auto)2018-06-06 06:12:00* Test Item Value Reference Range Interpretation Comments Basophils # (Auto) (test code = 704-7) 0.0 0.0-0.1 [facility] SoutheastAbsolute Immature Granulocyte (auto 2018-06-06 06:12:00* Test Item Value Reference Range Interpretation Comments Absolute Immature Granulocyte (auto (tiffany t code = Absolute Immature Granulocyte (auto) 0.04 0-0.1 [facility] Jespx3522-95-83 05:42:00* Test Item Value Reference Range Interpretation Comments Sodium Level (test code = 2951-2) 136 136-145 [facility]Potassium Lxyhh9129-34-62 05:42:00* Test Item Value Reference Range Interpretation Comments Potassium Level (test code = 2823-3) 4.1 3.5-5.1 [facility] SoutheastChloride Acksa0047-92-93 05:42:00* Test Item Value Reference Range Interpretation Comments Chloride Level (test code = 2075-0) 103 98-107 [facility] SoutheastCarbon Dioxide Tmuer3722-03-17 05:42:00* Test Item Value Reference Range Interpretation Comments Carbon Dioxide Level (test code = 2028-9) 24 - [facility] SoutheastAnion Kwg4304-92-46 05:42:00* Test Item Value Reference Range Interpretation Comments Anion Gap (test code = 62049-3) 13.1 8-16 [facility] SoutheastBlood Urea Mxqacuoh5509-92-51 05:42:00* Test Item Value Reference Range Interpretation Comments Blood Urea Nitrogen (test code = 3094-0) 14 7-26 [facility] SoutheastCreatinine2018-08-24 05:42:00* Test Item Value Reference Range Interpretation Comments Creatinine (test code = 2160-0) 1.09 0.72-1.25 [facility] SoutheastBUN/Creatinine Mtdiw1052-04-20 05:42:00* Test Item Value Reference Range Interpretation Comments BUN/Creatinine Ratio (test code = 3097-3) 13 04-07 [facility] SoutheastEstimat Glomerular Filtration Rate 2018-06-06 05:42:00* Test Item Value Reference Range Interpretation Comments Estimat Glomerular Filtration Rate (test code = 61690-5) 60- >60 Ranges were taken from the National Kidney Disease Education Program and the [facility] literature.Reference ranges:60 or greater: Asqwdk98-91 ( for 3 consecutive months): Chronic kidney disease 15 or less: Kidney failureHCA [facility] Healthcare SoutheastGlucose Rlmct9275-15-58 05:42:00* Test Item Value Reference Range Interpretation Comments Glucose Level (test code = JOI3271) 144 74-118 H [facility] SoutheastCalcium Lketn6342-90-80 05:42:00* Test Item Value Reference Range Interpretation Comments Calcium Level (test code = 50778-4) 9.8 8.4-10.2 [facility] SoutheastActivated Partial Thromboplast Time 2018-06-06 05:22:00* Test Item Value Reference Range Interpretation Comments Activated Partial Thromboplast Time (test code = 61205-8) 27.5 23.8-35.5 [facility] SoutheastTotal Cruxyggph5251-77-31 14:16:00* Test Item Value Reference Range Interpretation Comments Total Bilirubin (test code = 1975-2) 0.5 0.2-1.2 [facility] SoutheastAspartate Amino Transf (AST/SGOT) 2018-06-03 14:16:00* Test Item Value Reference Range Interpretation Comments Aspartate Amino Transf (AST/SGOT) (test code = Aspartate Amino Transf (AST/SGOT)) 14 5-34 [facility] SoutheastAlanine Aminotransferase (ALT/SGPT) 2018-06-03 14:16:00* Test Item Value Reference Range Interpretation Comments Alanine Aminotransferase (ALT/SGPT) (test code = 1742-6) 14 0-55 [facility] SoutheastTotal Auzbkhy0561-78-46 14:16:00* Test Item Value Reference Range Interpretation Comments Total Protein (test code = 2885-2) 7.4 6.5-8.1 [facility] SoutheastAlbumin2018-08-21 14:16:00* Test Item Value Reference Range Interpretation Comments Albumin (test code = 1751-7) 3.7 3.5-5.0 [facility] SoutheastGlobulin2018-08-21 14:16:00* Test Item Value Reference Range Interpretation Comments Globulin (test code = 97467-9) 3.7 2.3-3.5 H [facility] SoutheastAlbumin/Globulin Zdilw8401-71-14 14:16:00 * Test Item Value Reference Range Interpretation Comments Albumin/Globulin Ratio (test code = 1759-0) 1.0 0.8-2.0 [facility] SoutheastAlkaline Rhlvdbowabk0266-11-01 14:16:00* Test Item Value Reference Range Interpretation Comments Alkaline Phosphatase (test code = 6768-6) 80 40-150 [facility] SoutheastProthrombin Bipu9474-59-61 14:07:00* Test Item Value Reference Range Interpretation Comments Prothrombin Time (test code = 5902-2) 13.2 11.9-14.5 [facility] SoutheastProthromb Time International Ratio 2018-06-03 14:07:00* Test Item Value Reference Range Interpretation Comments Prothromb Time International Ratio (test code = 6301-6) 1.08 Oral Anticoagulant Therapy INR Values:1. Low Intensity Therapy 1.5 - 2.02 . Moderate Intensity Therapy 2.0 - 3.03. High Intensity Therapy(1) 2.5 - 3. 54. High Intensity Therapy(2) 3.0 - 4.05. Panic Value INR > 5.0 [facility]
== END 2020-08-13 00:27 | disposition other institution (70) ==
LOC: ER 20:16
DX: I21.4 Non-ST elevation (NSTEMI) myocardial infarction (principal); R09.02 Hypoxemia; J18.9 Pneumonia, unspecified organism; I50.9 Heart failure, unspecified; Z11.59 Encounter for screening for other viral diseases
CPT/HCPCS: 36415; 71250; 80053; 82550; 82553; 83605; 83880; 84484; 85025; 87040; 93005; 99285; J0456; J0696; J1100; J1940; U0002